=== PATIENT | female | born 1985 | race Caucasian/White ===

== ENCOUNTER 2017-10-28 04:58 | Inpatient (IN) ==
--- OUTSIDE RECORDS SUMMARY | 2017-10-28 05:03 | External Medical Summary | Continuity of Care Document ---
:1985 Author Organization [facility] Address [address] [place], [place] [id number] Phone Care Team Providers Name Role Phone Subha Snell DO Unavailable Unavailable Allergies, Adverse Reactions, Alerts Substance Reaction Severity Status No Known Drug Allergies Unknown Active Medications Medication Instructions Dosage Effective Status Comments Dates (start - stop) levothyroxine 88 take 1 tablet by 88 MCG - Active mcg tablet oral route every day levothyroxine 100 take 1 tablet by - Active mcg tablet oral route every day (with the 88mcg) acetaminophen 300 take 1 tablet by Not Available - Active called to [facility] mg-codeine 30 mg oral route every tablet 6 hours as needed 28 mg take 1 tablet by Not Available - Active iron-800 mcg tablet oral route every day Tylenol Extra take 2 tablet by 1000 MG - Active Strength 500 mg oral route every tablet 6 hours as needed Problems Condition Effective Dates (start - stop) Clinical Status Supervision of other high risk - pregnancies, second trimester Endo, nutritional and metab diseases - comp preg, second tri 21 weeks gestation of - Supervision of other high risk - pregnancies, first trimester 13 weeks gestation of - Supervision of other high risk - pregnancies, first trimester Endo, nutritional and metab diseases - comp preg, first tri Encntr screen for infections w sexl - mode of transmiss Encounter for screening for oth - infec/parastc diseases Encounter for screening of - mother 10 weeks gestation of - Endo, nutritional and metab diseases - comp preg, second tri Encntr for suprvsn of normal first - preg, second trimester 17 weeks gestation of - Endo, nutritional and metab diseases - comp preg, second tri 21 weeks gestation of - Endo, nutritional and metab diseases - comp preg, second tri 14 weeks gestation of - Migraines Active Procedures Procedure Date Ultrasound exam of preg uterus, complete Results Test Name Date and Time Measure Units Reference Range Abnormal Flag Comments Unknown Advance Directives Directive Yes / No Effective Date File Name Unknown Encounters Encounter Practice Location Reason(s) Diagnoses Date Provider Care Team Description For Visit Members Reji Schmidt Mar-0 Tom In Womens 8-201 [place]. 700 Health PA, 8 Medical PO [address] Center [address], Walter Molina, [facility], [place], Schmidt, [id number], [place], [place] [id number] tel: , [place]. tel: [phone] Reji Renteria, nutritional Mar-0 Tom Referring In Womens and metab - [place]. 700 Provider: Health PA, diseases comp 8 Medical Chidi PO Box [facility], second Center Tom R, 1522, tri21 weeks Walter Molina, gestation of 120, Medical [place], [facility] , [place], [facility] 120, [place] [id number] Brayan, tel: , [place]. [place], tel: [phone]. [id number] tel:[phone] Reji Schmidt Supervision of Mar-0 Tom Referring In Womens Ultrasound other high risk [place]. 700 Provider: Health PA, pregnancies, 8 Medical Chidi PO Box second Center Tom R, 1522, [address]oDr [address] [place], nutritional and 120, Medical [place], metab diseases [place]an [place] [id number], comp preg, second [place], [facility] 120, [place] tri21 weeks [id number] Brayan, tel: gestation of , [place]. [place] tel:[phone]. [id number] tel:[phone] Associates [facility] Renteria nutritional Feb-0 Tom Referring In Womens and metab [place]. 700 Provider: Health PA, diseases comp 8 Medical Chidi PO Box preg, second Center Tom R, 1522, triEncntr for Walter Molina, suprvsn of normal 120, Medical [place], first juan, He [place] [address] [id number], second [place], Walter 120, [place] [id number] weeks [id number] Brayan, tel: gestation of , [place]. [place] tel: [phone]. [id number] tel:[phone] Reji Renteria nutritional Apr- Tom Referring In Womens and metab [place]. 700 Provider: Health PA, diseases comp 8 Medical Chidi PO Box preg, second Center Tom R, 1522, tri14 weeks Walter Molina, gestation of 120, Medical [place], [place]ray[place] [id number], [place], Walter 120, [place] [id number] Brayan, tel: , [place]. [place] tel: [phone]. [id number] tel:[phone] Reji Schmidt Supervision of Apr- Tom Referring In Womens Ultrasound other high risk 0-201 [place]. 700 Provider: Health PA, pregnancies, 8 Medical Chidi PO Box first [id number] Center Tom R, 1522, weeks gestation Walter Molina, of 120, Medical Bray[address] [id number], [place], Walter 120, [place] [id number] Brayan, tel: , [place]. [place] tel: [phone]. [id number] tel:[phone] Reji Schmidt Supervision of Dec-2 Tom Referring In Womens other high risk 0-201 [place]. 700 Provider: Health PA, pregnancies, 7 Medical Chidi PO Box first Center Tom R, 1522, trimesterEndo, Walter Molina, nutritional and 120, Medical [place], metab diseases He [place] [id number], comp preg, first [place], Walter 120, [place] triEncntr screen [id number] Brayan, tel: for infections w , [place], [address] sexl mode of tel: [phone]. transmissEncounte [id number] tel: r for screening [phone] for oth infec/parastc diseasesEncounter for screening of [id number] weeks gestation of Reji Schmidt Nov- Tom In Womens 0-[address], [address] [place] [address] 1522, Walter Molina [place], [facility], [place], Brayan, [id number], [place], [place] [id number] tel: , [place]. [id number] tel: [phone] Family History Family Member Diagnosis Age At Onset Paternal Grandmother Breast Cancer Maternal Grandmother Thyroid Disorder No family history of Pulmonary Embolism No family history of Venous Thrombosis Paternal Grandmother Diabetes Paternal Grandfather Colon Cancer Immunizations Vaccine Date Status Comments Influenza, injectable, quadrivalent, completed Source: Other Provider preservative free, 3 yrs or older Tdap completed Source: Other Provider Payers Payer name Insurance type Covered libertarian ID Authorization(s) [facility] [id number] Social History Type Description Quantity Date Captured Unknown Vital Signs Date / Height Weight BMI Pulse Blood Temperature Respiratory Body Head BMI Time: Rate Pressure Rate Surface Circumference percentile Area Unknown Chief Complaint And Reason For Visit Unknown Chief Complaint And Reason For Visit Reason For Referral Reason For Referral Unknown Plan Of Care Date Type Action Status Appointment Leia Delarosa BOOKED Future Order: Radiology Order Complete OB Ultrasound > 14 Weeks Ordered ([id number]) Future Order: Radiology Order Nuchal Translucency ([id number]) Ordered Future Order: Lab Order Pap Smear With HPV Reflex If ASCUS Ordered ([id number]), Collected on: Date Type Problem Goal Intervention Status Start Date Unknown. History Of Present Illness Encounter Date Complaint History Of Present Illness This patient has no known history of present illness Functional Status Encounter Date Functional Assessment Cognitive Assessment Unknown Medications Administered Medication Instructions Dosage Effective Dates (start - stop) Status Comments Drug Treatment Unknown Instructions Date Instruction Additional Information travel use of any medications (including supplements, vitamins, herbs, OTC drugs) domestic violence seat belt use childbirth classes / hospital facilities hospital registration genetic testing new ob handbook Zika virus assessment & precautions HIV and other routine tests risk factors identified by history anticipated course of care nutrition and weight gain counseling, special diet toxoplasmosis precautions (cats / raw meat) sexual activity exercise indications for ultrasound influenza vaccine environmental / work hazards
--- OUTSIDE RECORDS SUMMARY | 2017-10-28 05:03 | External Medical Summary | Continuity of Care Document ---
:1985 Author Organization [facility] Address [address] [place], [place] [id number] Phone Care Team Providers Name Role Phone [...] - mother 10 weeks gestation of - Supervision of other [...] of - Migraines Active Procedures Procedure Date Unknown Results Test Name Date and Time Measure Units Reference Range Abnormal Flag Comments Unknown Advance Directives Directive Yes / No Effective Date File Name Unknown Encounters Encounter Practice Location Reason(s) Diagnoses Date Provider Care Team Description For Visit Members Reji Schmidt Mar-0 Tom In Womens 8 [place]. 700 Health PA, 8 Medical PO Box Center [address], Walter Molina, [facility], [place], Brayan, [id number], [place], [id number] tel: , . tel: [phone] Reji Renteria, nutritional Mar-0 Tom Referring In Womens and metab [place]. 700 Provider: Health PA, diseases comp 8 Medical [facility] Box preg, second Center Tom R, 1522, tri21 weeks Walter Molina, gestation of 120, Medical [place], Brayan He Molina [id number], [place], [place] [address], [place] [id number] Brayan tel: , . [place], tel: [phone]. [id number] tel:[phone] Reji Schmidt Supervision of Mar-0 Tom Referring In Womens Ultrasound other high risk [place]. 700 Provider: Health PA, pregnancies, 8 Medical Chidi PO Box second Center Tom R, 1522, trimesterEndDr [address] [place] nutritional and 120, Medical [place], metab diseases [facility] [id number], comp preg, second [place], [facility] 120, [place] tri21 weeks [id number] Brayan, tel: gestation of , [place]. [place] tel: [phone]. [id number] tel:[phone] Associates [facility] Renteria, nutritional Feb-0 Tom Referring In Womens and metab [place]. 700 Provider: Health PA, diseases comp 8 Medical Chidi PO Box preg, second Center Tom R, 1522, triEncntr for Walter Molina suprvsn of normal 120, Medical [place], first juan, Brayan [place] [id number], second [place], Walter 120, [place] [id number] weeks [id number] Brayan, tel: gestation of , [place]. [place] tel: [phone]. [id number] tel:[phone] Reji Renteria, nutritional Apr- Tom Referring In Womens and metab [place]. 700 Provider: Health PA, diseases comp 8 Medical Chidi PO Box preg, second Center Tom R, 1522, tri14 weeks Walter Molina, gestation of 120, Medical [place], [facility] [id number], [place], Walter 120, [place] [id number] Brayan, tel: , [place]. [place], tel: [phone]. [id number] tel:[phone] Reji Schmidt Supervision of Apr- Tom Referring In Womens Ultrasound other high risk 0-201 [place]. 700 Provider: Health PA, pregnancies, 8 Medical Chidi PO Box first [id number] Center Tom R, 1522, weeks gestation Walter Molina, of 120, Medical Brayan FORD [place] [id number], [place], Walter 120, [place] [id number] Brayan, tel: , [place]. [place], tel: [phone]. [id number] tel:[phone] Reji Schmidt Supervision of Mar-2 Tom Referring In Womens other high risk 0-201 [place]. 700 Provider: Health PA, pregnancies, 7 Medical Chidi PO Box first Center Tom R, 1522, trimesterEndo, Walter Molina, nutritional and 120, Medical [place], metab diseases He [address] [place] [id number], comp preg, first [place], Walter 120, [place] triEncntr screen [id number] Brayan, tel: for infections w , [place]. [place], sexl mode of tel: [phone]. transmissEncounte [id number] tel: r for screening [phone] for oth infec/parastc diseasesEncounter for screening of [id number] weeks gestation of Reji Schmidt Nov-2 Tom In Womens 0-[address], [address] [place] [address] 1522, Walter Molina, 120, [place], [place], [id number], [place], [id number] tel: , [place]. tel: [phone] Family History Family Member Diagnosis Age At [...] Provider Payers Payer name Insurance type Covered republican ID Authorization(s) [facility] [id number] Social History Type Description Quantity Date Captured [...] Leia Delarosa BOOKED Future Order: Radiology Order Nuchal Translucency ([id number]) Ordered Future Order: Lab Order Pap Smear With HPV Reflex If ASCUS Ordered ([id number]), Collected on: Future Order: Radiology Order Complete OB Ultrasound > 14 Weeks Ordered ([id number]) Date Type Problem Goal Intervention Status Start [...]
--- OUTSIDE RECORDS SUMMARY | 2017-10-28 05:03 | External Medical Summary | Continuity of Care Document ---
:1985 Author Organization [facility] Address [address] [place], [place] [id number] Phone Care Team Providers Name Role Phone Subha Snell DO Unavailable Unavailable Allergies, Adverse Reactions, Alerts Substance Reaction Severity Status No Known Drug Allergies Unknown Active Medications Medication Instructions Dosage Effective Status Comments Dates (start - stop) levothyroxine 200 take 1 tablet by 200 MCG - Active mcg tablet oral route every day levothyroxine 88 TAKE 1 TABLET BY - Active mcg tablet ORAL ROUTE EVERY DAY acetaminophen 300 take 1 tablet by Not [...] metab diseases - comp preg, second tri 27 weeks gestation of - Supervision of other high risk - pregnancies, second trimester Endo, nutritional and metab diseases - comp preg, second tri 21 weeks gestation of - Supervision of other high risk - pregnancies, third trimester Endo, nutritional and metab diseases - comp preg, third tri 34 weeks gestation of - Supervision of other high risk - pregnancies, third trimester Maternal care for excess growth, - third trimester, unsp Endo, nutritional and metab diseases - comp preg, third tri 34 weeks gestation of - Endo, nutritional and [...] of normal first - preg, second trimester 24 weeks gestation of - Endo, nutritional and metab diseases - comp preg, second tri 14 weeks gestation of - Endo, nutritional and metab diseases - comp preg, third tri 33 weeks gestation of - Encntr for suprvsn of normal first - preg, third trimester 31 weeks gestation of - Migraines Active Procedures Procedure Date Unknown Results Test Name Date and Time Measure Units Reference Range Abnormal Flag Comments Unknown Advance Directives Directive Yes / No Effective Date File Name Unknown Encounters Encounter Practice Location Reason(s) Diagnoses Date Provider Care Team Description For Visit Members Reji Schmidt Supervision of Tom Referring In Womens other high risk 1-201 [place]. 700 Provider: Health PA, pregnancies, 8 Medical Chidi PO Box [facility] Center Tom Flores, 1522, trimesterMaternal , Walter 700 [place], care for excess 120, Medical [place], growth, [facility] , third trimester, [place], Walter 120, [place] unspEndo, [id number] Brayan, tel: nutritional and , [place]. [place] metab diseases tel:[phone]. comp preg, third [id number] tel:+ tri34 weeks [id number] gestation of Associates Brayan Supervision of Amado-1 Tom Referring In Womens Ultrasound other high risk 1-201 [facility]. 700 Provider: Health PA, pregnancies, 8 Medical Chidi PO Box third Center Tom R, 1522, trimesterEndo, Walter Molina, nutritional and 120, Medical [place], metab diseases [facility] [id number], comp preg, third [place], Walter 120, [place] tri34 weeks [id number] Brayan, tel: gestation of , [place]. [place] tel:[phone]. [id number] tel:[phone] Reji Schmidt May-3 Tom In Womens 1-201 [facility]. 700 Health PA, 8 Medical PO Box Center [address], Walter Molina, 120, [place], [id number], [place], [place] [id number] tel: , [place]. tel: [phone] Reji Schmidt Endo, nutritional May-3 Tom Referring In Womens and metab 0-201 [facility]. 700 Provider: Health PA, diseases comp 8 Medical Chidi PO Box preg, third tri33 Center Tom R, 1522, weeks gestation Walter Molina, of 120, Medical [facility] [id number], [place], Walter 120, [place] [id number] Brayan, tel: , [place]. [place] tel: [phone]. [id number] tel:[phone] Reji Schmidt Encntr for May-1 Tom Referring In Womens suprvsn of normal 7-201 [facility]. 700 Provider: Health PA, first preg, third 8 Medical Chidi PO Box [id number] weeks Center Tom R, 1522, gestation of Walter Molina, 120, Medical [facility] [id number], [place], Walter 120, [place] [id number] [place], tel: , [place]. [place], tel: [phone]. [id number] tel:[phone] Reji Schmidt May-1 Tom In Womens 5-201 [facility]. 700 Health PA, 8 Medical PO Box Center [address], Walter Molina, 120, [place], [place], [id number], [place], [place] [id number] tel: , [place]. tel: [phone] Reji Schmidt Supervision of Apr-2 Tom Referring In Womens other high risk 4-201 [facility]. 700 Provider: Health PA, pregnancies, 8 Medical Chidi PO Box second Center Tom R, 1522, trimesterEndo, Dr Walter Darshan Fan, nutritional and 120, Medical [place], metab diseases Brayan, [place] [id number], comp preg, second [place], Walter 120, [place] tri27 weeks [id number] Brayan, tel: gestation of , [place]. [place] tel: [phone]. [id number] tel:[phone] Reji Renteria, nutritional Mar-2 Tom Referring In Womens and metab 9-201 [facility]. 700 Provider: Health PA, diseases comp 8 Medical [facility] PO Box preg, second Center Tom R, 1522, triEncntr for Dr [facility] Darshan Fan, suprvsn of normal 120, Medical [place], first [facility], [facility] [id number], second [place], [facility] 120, [place] [id number] weeks [id number] Brayan, tel: gestation of , [place]. [place] tel: [phone]. [id number] tel:[phone] Rjei Schmidt Endo, nutritional Mar-0 Tom Referring In Womens and metab 7-201 [facility]. 700 Provider: Health PA, diseases comp 8 Medical [facility] PO Box preg, second Center Tom R, 1522, tri21 weeks Dr Walter Darshan Fan, gestation of 120, Medical [place], Brayan, [place] [id number], [place], Walter 120, [place] [id number] Brayan, tel: , [place]. [place] tel: [phone]. [id number] tel:[phone] Reji Schmidt Supervision of Mar-0 Tom Referring In Womens Ultrasound other high risk -201 [facility]. 700 Provider: Health PA, pregnancies, 8 Medical Chidi PO Box second Center Tom R, 1522, trimesterEndo, Walter Molina, nutritional and 120, Medical [place], metab diseases Brayan Mar[place] [id number], comp preg, second [place], Walter 120, [place] tri21 weeks [id number] Brayan, tel:+ gestation of , [place]. [place] tel: [phone]. [id number] tel:[phone] Reji Renteria, nutritional Feb-0 Tom Referring In Womens and metab [facility]. 700 Provider: Health PA, diseases comp 8 Medical Chidi PO Box preg, second Center Tom R, 1522, triEncntr for Walter Molina, suprvsn of normal 120, Medical [place], first preg, [facility] [id number], second [place], Walter 120, [place] weeks [id number] Brayan, tel: gestation of , [place]. [place] tel: [phone]. [id number] tel:[phone] Reji Renteria, nutritional Apr-1 Tom Referring In Womens and metab [facility]. 700 Provider: Health PA, diseases comp 8 Medical Chidi PO Box preg, second Center Tom R, 1522, tri14 weeks Walter Molina, gestation of 120, Medical [place], [facility] [id number], [place], Walter 120, [place] [id number] Brayan, tel: , [place]. [place] tel: [phone]. [id number] tel:[phone] Reji Schmidt Supervision of Apr-1 Tom Referring In Womens Ultrasound other high risk 0-201 [facility]. 700 Provider: Health PA, pregnancies, 8 Medical Chidi PO Box first [id number] Center Tom R, 1522, weeks gestation Walter Molina, of 120, Medical Brayan FORD [place] [id number], [place], Walter 120, [place] [id number] Brayan, tel: , [place]. [place] tel: [phone]. [id number] tel:[phone] Associates Brayan Supervision of Mar-2 Tom Referring In Womens other high risk 0-201 [facility]. 700 Provider: Health PA, pregnancies, 7 [facility] Box [facility] Tom R, 1522, trimesterEndo, , [facility] 700 [place], nutritional and 120, Medical [place], metab diseases [facility] [id number], comp preg, first [place], [facility] 120, [place] triEncntr screen [id number] Brayan, tel:316 for infections w , [place]. [place], sexl mode of tel: [phone]. transmissEncounte [id number] tel:316 r for screening [phone] for oth infec/parastc diseasesEncounter for screening of [id number] weeks gestation of Reji Schmidt Feb- Tom In Womens 0-201 [facility]. 700 Health PA, 7 [facility] PO Box Center 1522, , Walter [place], 120, [place], [id number], [place], [place] [id number] tel: , . tel: [phone] Family History Family Member Diagnosis Age At [...] Provider Payers Payer name Insurance type Covered constitution party ID Authorization(s) [facility] [id number] Social History Type Description Quantity Date Captured Unknown Vital Signs Date / Height Weight BMI Pulse Blood Temperature Respiratory Body Head BMI Time: Rate Pressure Rate Surface Circumference percentile Area Unknown Chief Complaint And Reason For Visit Unknown Chief Complaint And Reason For Visit Reason For Referral Reason For Referral Unknown Plan Of Care Date Type Action Status Appointment Leia Delarosa BOOKED Appointment Leia Delarosa BOOKED Appointment Leia Delarosa BOOKED Appointment Leia Delarosa BOOKED Future Order: Radiology Order Nuchal Translucency ([id number]) Ordered Future Order: Lab Order Pap Smear With HPV Reflex If ASCUS Ordered ([id number]), Collected on: Future Order: Radiology Order Complete OB Ultrasound > 14 Weeks Ordered ([id number]) Future Order: Radiology Order Ultrasound OB Follow-up ([id number]) Ordered Date Type Problem Goal Intervention Status Start [...]
--- OUTSIDE RECORDS SUMMARY | 2017-10-28 05:03 | External Medical Summary | Continuity of Care Document ---
:1985 Author Organization [facility] Address [address] [place], [place] [id number] Phone Care Team Providers Name Role Phone Subha Snell DO Unavailable Unavailable Allergies, Adverse Reactions, Alerts Substance Reaction Severity Status No Known Drug Allergies Unknown Active Medications Medication Instructions Dosage Effective Status Comments Dates (start - stop) levothyroxine 100 TAKE 1 TABLET BY - Active mcg tablet ORAL ROUTE EVERY DAY (WITH THE 88MCG) levothyroxine 88 TAKE 1 TABLET BY - Active mcg tablet ORAL ROUTE EVERY DAY levothyroxine 200 take 1 tablet by 200 MCG - Active mcg tablet oral route every day acetaminophen 300 take 1 tablet by Not [...] Effective Dates (start - stop) Clinical Status Encntr for suprvsn of normal first - preg, third trimester Encounter For Screening For - Streptococcus B 36 weeks gestation of - Supervision of other [...] third tri 33 weeks gestation of - Endo, nutritional and metab diseases - comp preg, third tri Encntr for suprvsn of normal first - preg, third trimester 37 weeks gestation of - Encounter for screening for - respiratory tuberculosis Encntr for suprvsn of normal first - preg, third trimester 38 weeks gestation of - Encntr for suprvsn of normal first - preg, third trimester 31 weeks gestation of - Migraines Active Procedures Procedure Date Immuniz admnin, 1 vac, sngl/combo 19 Yrs + TDAP VACCINE >7 IM OB Visit No Charge Cult, pathgnc orgnsm, screen Results Test Name Date and Time Measure Units Reference Range Abnormal Flag Comments Panel Description: Strep Gp B Culture Strep Gp B Negative Negative Centers for Disease Control Culture 13:45:00 and Prevention (CDC) and [place] Congressof Obstetricians and Gynecologists (ACOG) guidelines for prevention ofperinatal group B streptococcal (GBS) disease specify co-collection ofa vaginal and rectal swab specimen to maximize sensitivity of GBSdetection. Per the CDC and ACOG, swabbing both the lower vagina andrectum substantially increases the yield of detection compared withsampling the vagina alone. .Penicillin G, ampicillin, or cefazolin are indicated for intrapartumprophylaxis of GBS colonization. Reflex susceptibilitytesting should be performed prior to use of clindamycin only on GBSisolates from penicillin-allergic women who are considered a high riskfor anaphylaxis. Treatment with vancomycin without additional testingis warranted if resistance to clindamycin is noted. Advance Directives Directive Yes / No Effective Date File Name Unknown Encounters Encounter Practice Location Reason(s) Diagnoses Date Provider Care Team Description For Visit Members Reji Schmidt Encntr for Oct-0 Tom Referring In Womens suprvsn of normal 5-201 [place]. 700 Provider: Lashaun HUA, first preg, third 8 Medical Chidi DOUGLAS Box [id number] weeks [place] Tom R, 1522, gestation of Walter [place]olinata, 120, Medical [place] [facility] [id number], [place], [facility] 120, [place] [id number] Brayan, tel: , . [place], [address] tel: [phone]. [id number] tel:[phone] Reji Schmidt Encounter for Oct-0 Saavedra Referring In Womens screening for 3-201 Karmen. Provider: Lashaun HUA, respiratory 8 700 Chidi PO Box tuberculosis Medical Tom R, 1522, Center [address], [facility], 120, Center [id number], Schmidt, [facility] 120, [place] Brayan FORD, tel:[phone] [place], , [place]. [id number]. tel: tel:+ [phone] [facility] Endo, nutritional Amado-2 Tom Referring In Womens and metab 8-201 [place]. 700 Provider: Health PA, diseases comp 8 Medical [place] PO Box preg, third Center Tom R, 1522, triEncntr for Dr [place] [address] [place], suprvsn of normal 120, Medical [place], first preg, [facility] [id number], [id number] weeks [place], Walter 120, [place] gestation of [id number] Brayan, tel: , [place]. [place], tel: [phone]. [id number] tel:[phone] Reji Schmidt Amado-2 Tom In Womens 5-201 [place]. 700 Health PA, [address] [place] [address] Center 1522, Dr [facility] [place], 120, [place], [place]ray[place] [id number], [place], [place] tel: , [place]. tel: [phone] Reji Schmidt Encntr for Amado-2 Tom Referring In Womens suprvsn of normal 1-201 [place]. 700 Provider: Health PA, first preg, third 8 [facility] Box trimesterEncounte Center Tom R, 1522, r For Dr [place] [address] [place], Screening For 120, Medical [place], Streptococcus B36 [place] [id number], weeks gestation [place], Walter 120, [place] of [id number] [place], tel: , [place]. [place], tel:[phone]. [id number] tel:[phone] Reji Schmidt Supervision of Amado-1 Tom Referring In Womens other high risk 1-201 [place]. 700 Provider: Health PA, pregnancies, 8 [facility] third Center Tom R, 1522, trimesterMaternal , [place] [address] [place], care for excess 120, Medical [place], growth, [facility] [id number], third trimester, [place], Walter 120, [place] unspEndo, [id number] Brayan, tel: nutritional and , [place]. [place] metab diseases tel:[phone]. comp preg, third [id number] tel:+ tri34 weeks [phone] gestation of Associates B[facility] Supervision of Amado-1 Tom Referring In Womens Ultrasound other high risk 1-201 [place]. 700 Provider: Health PA, pregnancies, 8 Medical Chidi PO Box third Center Tom R, 1522, trimesterEndo, Walter Molina, nutritional and 120, Medical [place], metab diseases [place] [id number], comp preg, third [place], Walter 120, [place] tri34 weeks [id number] Brayan, tel: gestation of , [place]. [place] tel:[phone]. [id number] tel:[phone] Reji Schmidt May-3 Tom In Womens 1-201 [place]. 700 Health PA, 8 Medical PO Box Center 1522, Walter Molina, 120, [place] [id number], [place], [place] [id number] tel:+ , [place]. tel: [phone] Reji Schmidt Endo, nutritional May-3 Tom Referring In Womens and metab 0-201 [place]. 700 Provider: Health PA, diseases comp 8 Medical Chidi PO Box preg, third tri33 Center Tom R, 1522, weeks gestation Walter Molina, of 120, Medical [facility] [id number], [place], [facility] 120, [place] [id number] B[place]an, tel: , [place]. [place] tel: [phone]. [id number] tel:[phone] Reji Schmidt Encntr for May-1 Tom Referring In Womens suprvsn of normal 7-201 [place]. 700 Provider: Health PA, first preg, third 8 Medical Chidi PO Box [id number] weeks Center Tom R, 1522, gestation of Walter Molina, 120, Medical [facility] [id number], [place], Walter 120, [place] [id number] Brayan, tel: , [place]. [place] tel: [phone]. [id number] tel:[phone] Reji Schmidt Supervision of Apr-2 Tom Referring In Womens other high risk [place]. 700 Provider: Health PA, pregnancies, 8 Medical Chidi PO Box second Center Tom R, 1522, trimesterEndDr landen, Walter 700 [place], nutritional and 120, Medical [place], metab diseases Bray[place] [id number], comp preg, second [place], Walter 120, [place] tri27 weeks [id number] Brayan, tel:+ gestation of , [place]. [place] tel: [phone]. [id number] tel:[phone] Reji Schmidt Endo, nutritional Mar-2 Tom Referring In Womens and metab [place]. 700 Provider: Health PA, diseases comp 8 Medical Chidi PO Box preg, second Center Tom R, 1522, triEncntr for , Walter 700 [place], suprvsn of normal 120, Medical [place], first preg, [place]ray[place] [id number], second [place], Walter 120, [place] [id number] weeks [id number] Brayan, tel:+ gestation of , [place]. [place] tel: [phone]. [id number] tel:[phone] Reji Renteria, nutritional Mar-0 Tom Referring In Womens and metab [place]. 700 Provider: Health PA, diseases comp 8 Medical Chidi PO Box preg, second Center Tom R, 1522, tri21 weeks , Walter Darshan Fan, gestation of 120, Medical [place], [place]ray[place] [id number], [place], Walter 120, [place] [id number] Bray[place], tel: , [place]. [place] tel: [phone]. [id number] tel:[phone] Reji Schmidt Supervision of Mar-0 Tom Referring In Womens Ultrasound other high risk - [place]. 700 Provider: Health PA, pregnancies, 8 Medical Chidi PO Box second Center Tom R, 1522, trimesterDr Dexter, Walter Darshan Fan, nutritional and 120, Medical [place], metab diseases He [place] [id number], comp preg, second [place], Walter 120, [place] tri21 weeks [id number] Brayan, tel: gestation of , [place]. [place] tel: [phone]. [id number] tel:[phone] Reji Renteria, nutritional Feb-0 Tom Referring In Womens and metab -201 [place]. 700 Provider: Health PA, diseases comp 8 Medical Chidi PO Box preg, second Center Tom R, 1522, triEncntr for [place] Molina suprvsn of normal 120, Medical [place], first [facility], [facility] [id number], second [place], Walter 120, [place] [id number] weeks [id number] Brayan, tel: gestation of , [place]. [place] tel: [phone]. [id number] tel:[phone] Reji Renteria, nutritional Bala- Tom Referring In Womens and metab 201 [place]. 700 Provider: Health PA, diseases comp 8 Medical Chidi PO Box preg, second Center Tom R, 1522, tri14 weeks [place] Molina, gestation of 120, Medical [place], [facility] [id number], [place], Walter 120, [place] [id number] Brayan, tel: , [place]. [place] tel: [phone]. [id number] tel:[phone] Reji Schmidt Supervision of Apr- Tom Referring In Womens Ultrasound other high risk 0-201 [place]. 700 Provider: Health PA, pregnancies, 8 Medical Chidi PO Box first Center Tom R, 1522, weeks gestation Walter Molina, of 120, Medical [place], [facility] [id number], [place], Walter 120, [place] [id number] Brayan, tel: , [place]. [place] tel: [phone]. [id number] tel:[phone] Reji Schmidt Supervision of Mar-2 Tom Referring In Womens other high risk 0-201 [place]. 700 Provider: Health PA, pregnancies, 7 Medical Chidi PO Box first Center Tom R, 1522, trimesterEndo, Walter Molina, nutritional and 120, Medical [place], metab diseases Brayan He Molina [id number], comp preg, first LOGAN, Walter 120, [place] triEncntr screen [id number] Brayan, tel: for infections w , [place]. [place], sexl mode of tel: [phone]. transmissEncounte [id number] tel: r for screening [phone] for oth infec/parastc diseasesEncounter for screening of txuxcy40 weeks gestation of Associates [facility] Tom In Womens 0-[address], 7 Medical Box Center 1522, , Walter [place], 120, [place], Brayan, [id number], [place], [place] [id number] tel: , [place]. tel: [phone] Family History Family Member Diagnosis Age At Onset Paternal Grandmother Breast Cancer Maternal Grandmother Thyroid Disorder No family history of Pulmonary Embolism No family history of Venous Thrombosis Paternal Grandmother Diabetes Paternal Grandfather Colon Cancer Immunizations Vaccine Date Status Comments Tdap completed Source: New Immunization Record Influenza, injectable, completed Source: Other Provider quadrivalent, preservative free, 3 yrs or older Tdap completed Source: Other Provider Payers Payer name Insurance type Covered constitution party ID Authorization(s) [facility] [id number] [facility] [id number] Social History Type Description Quantity Date Captured Alcohol Use Details No Caffeine Use Details Unknown Tobacco Use Status Unknown Smoking Status Never smoker Vital Signs Date / Height Weight BMI Pulse Blood Temperature Respiratory Body Head BMI Time: Rate Pressure Rate Surface Circumference percentile Area 244.90 35.3 / lbs 4 mm[Hg] 1:28 kg/m PM eter (2) Chief Complaint And Reason For Visit Unknown Chief Complaint And Reason For Visit Reason For Referral Reason For Referral Unknown Plan Of Care Date Type Action Status Appointment Leia Delarosa BOOKED Future Order: Radiology Order Nuchal Translucency ([id number]) Ordered Future Order: Lab Order Pap Smear With HPV Reflex If ASCUS Ordered ([id number]), Collected on: Future Order: Radiology Order Complete OB Ultrasound > 14 Weeks Ordered ([id number]) Future Order: Radiology Order Ultrasound OB Follow-up ([id number]) Ordered Date Type Problem Goal Intervention Status [...]
--- OUTSIDE RECORDS SUMMARY | 2017-10-28 05:04 | External Medical Summary | Continuity of Care Document ---
:1985 Author Organization [facility] Address [address] [place], [place] [id number] Phone Care Team Providers Name Role Phone Subha Snell DO Unavailable Unavailable Allergies, Adverse Reactions, Alerts Substance Reaction Severity Status No Known Drug Allergies Unknown Active Medications Medication Instructions Dosage Effective Status Comments Dates (start - stop) levothyroxine 175 take 1 tablet by 175 MCG - Active mcg tablet oral route [...] - mother 10 weeks gestation of - Migraines Active Procedures Procedure Date Unknown Results Test Name Date and Time Measure Units Reference Range Abnormal Flag Comments Unknown Advance Directives Directive Yes / No Effective Date File Name Unknown Encounters Encounter Practice Location Reason(s) Diagnoses Date Provider Care Team Description For Visit Members Reji Schmidt Supervision of Tom Referring In Womens Ultrasound other high risk 0-201 [place]. 700 Provider: Health PA, pregnancies, 8 Medical [facility] Box first [id number] Center Tom R, 1522, weeks gestation Dr, Walter Fan, of 120, Medical [place], Schmidt, [place] [id number], [place], [facility] 120, [place] [id number] [place], tel: , [place]. [place], tel:[phone]. [id number] tel:[phone] Reji Schmidt Dec-2 Tom In Womens 2-201 [place]. 700 Health PA, 7 Medical PO Box Center 1522, Walter Molina, 120, [place], [place], [id number], [place] [id number] tel: , [place]. tel: [phone] Reji Schmidt Dec-2 Tom In Womens 1-201 [place]. 700 Health PA, 7 Medical PO Box Center 1522, Walter Molina, 120, [place], Brayan, [id number], [place] [id number] tel: , [place]. tel: [phone] Reji Schmidt Supervision of Dec-2 Tom Referring In Womens other high risk 0-201 [place]. 700 Provider: Health PA, pregnancies, 7 [facility] Box first Center Tom R, 1522, trimesterEndo, Walter Molina, nutritional and 120, Medical [place], metab diseases [facility] [id number], comp preg, first [place], [facility] 120, [place] triEncntr screen [id number] Brayan, tel: for infections w , [place]. [place], sexl mode of tel: [phone]. transmissEncounte [id number] tel: r for screening [phone] for oth infec/parastc diseasesEncounter for screening of lnpeth66 weeks gestation of Reji Schmidt Nov-2 Tom In Womens 0-201 [place]. 700 Health PA, 7 Medical PO Box Center 1522, Walter [place]ina, 120, [place], Brayan, [id number], [place], [place] [id number] tel: , [place]. tel:[phone] Family History Family Member Diagnosis Age At [...] Provider Payers Payer name Insurance type Covered democrat ID Authorization(s) [facility] [place] [id number] Social History Type Description Quantity Date Captured [...] BOOKED Future Order: Radiology Order Nuchal Translucency ([id number]) Ordered Future Order: Lab Order Pap Smear [...]
--- OUTSIDE RECORDS SUMMARY | 2017-10-28 05:04 | External Medical Summary | Continuity of Care Document ---
:1985 Author Organization [facility] Address [address] [place], [place] [id number] Phone Care Team Providers Name Role Phone [...] Effective Dates (start - stop) Clinical Status Endo, nutritional and metab diseases - comp preg, third tri 33 weeks gestation of - Supervision of other [...] second tri 14 weeks gestation of - Encntr for suprvsn of normal first - preg, third trimester 31 weeks gestation of - Migraines Active Procedures Procedure Date OB Visit No Charge Assay thyroid stimulating hormone Venpnctr fngr/heel/ear stick routne Results Test Name Date and Time Measure Units Reference Range Abnormal Flag Comments Panel Description: Thyrotropin [Units/volume] in Serum or Plasma by Detection limit <=0.05 mIU/L TSH 14:04:00 3.740 uIU/mL 0.450-4.500 Reference Interval : First Trimester 0.100 - 2.500 Second Trimester 0.200 - 3.000 Third Trimester 0.300 - 3.000 . Non- Adult 0.450 - 4.500 Advance Directives Directive Yes / No Effective Date File Name Unknown Encounters Encounter Practice Location Reason(s) Diagnoses Date Provider Care Team Description For Visit Members Reji Schmidt Supervision of Amado-1 Tom Referring In Womens other high risk 1-201 [place]. 700 Provider: Health PA, pregnancies, 8 Medical [facility] Center Tom R, 1522, trimesterMaternal , [place] [address] [place], care for excess 120, Medical [place], growth, [facility] [id number], third trimester, [place], Walter 120, [place] unspEndo, [id number] Brayan, tel:+ nutritional and , [place]. [place] metab diseases tel: [phone]. comp preg, third [id number] tel:+316 tri34 weeks [id number] gestation of Associates Brayan Supervision of Amado-1 Tom Referring In Womens Ultrasound other high risk 1-201 [place]. 700 Provider: Health PA, pregnancies, 8 Medical [facility] third Center Tom R, 1522, trimesterEndoDr, [place] [address] [place], nutritional and 120, Medical [place], metab diseases Brayan [place] [id number], comp preg, third [place], Walter 120, [place] tri34 weeks [id number] Brayan, tel: gestation of , [place]. [place] tel: [phone]. [id number] tel:[phone] Reji Schmidt August-3 Tom In Womens 1-201 [place]. 700 Health PA, 8 [facility] Box Center 1522, Walter [place]ina, 120, [place], Brayan [id number], [place], [place] [id number] tel: , [place]. tel: [phone] Reji Schmidt Endo, nutritional May-3 Tom Referring In Womens and metab 0-201 [place]. 700 Provider: Health PA, diseases comp 8 Medical [facility] Box preg, third tri33 Center Tom R, 1522, weeks gestation Dr [facility] Darshan Fan, of 120, Medical [place] [address] [id number], [place], Walter 120, [place] [id number] Brayan, tel: , [place]. [place], tel: [phone]. [id number] tel:[phone] Reji Schmidt Encntr for May-1 Tom Referring In Womens suprvsn of normal 7-201 [place]. 700 Provider: Health PA, first preg, third 8 Medical [place] PO Box [id number] weeks Center Tom R, 1522, gestation of Walter [place]ina, 120, Medical [place], Brayan, [place] [id number], [place], Walter 120, [place] [id number] Brayan, tel: , [place]. [place], tel:[phone]. [id number] tel:[phone] Reji Schmidt August-1 Tom In Womens 5-201 [place]. 700 Health PA, 8 Medical PO Box Center 1522, Walter [place]ina, 120, [place], [place]rayan, [id number], [place], [place] [id number] tel: , [place]. tel: [phone] Reji Schmidt Supervision of Apr-2 Tom Referring In Womens other high risk 4-201 [place]. 700 Provider: Health PA, pregnancies, 8 Medical [facility] Box second Center Tom R, 1522, trimesterEndo, Walter Molina nutritional and 120, Medical [place], metab diseases [facility] [id number], comp preg, second [place], [facility] 120, [place] tri27 weeks [id number] Brayan, tel: gestation of , [place]. [place] tel:[phone]. [id number] tel:[phone] Reji Schmidt Endo, nutritional Mar-2 Tom Referring In Womens and metab 9-201 [place]. 700 Provider: Health PA, diseases comp 8 Medical [facility] Box preg, second Center Tom R, 1522, triEncntr for Walter Molina, [facility] normal 120, Medical [place], first preg, [facility] [id number], second [place], [facility] 120, [place] [id number] weeks [id number] Brayan, tel: gestation of , [place]. [place] tel: [phone]. [id number] tel:[phone] Reji Renteria, nutritional Mar-0 Tom Referring In Womens and metab [place]. 700 Provider: Health PA, diseases comp 8 Medical [place] PO Box preg, second Center Tom R, 1522, tri21 weeks [place]ina, gestation of 120, Medical [place], He Schmidt [place] [id number], [place], Walter 120, [place] [id number] Brayan, tel: , [place]. [place] tel: [phone]. [id number] tel:[phone] Reji Schmidt Supervision of Mar-0 Tom Referring In Womens Ultrasound other high risk [place]. 700 Provider: Health PA, pregnancies, 8 Medical [place] PO Box second Center Tom R, 1522, trimesterEndo, Walter Molina, nutritional and 120, Medical [place], metab diseases He [place] [id number], comp preg, second [place], Walter 120, [place] tri21 weeks [id number] Brayan, tel: gestation of , [place]. [place] tel: [phone]. [id number] tel:[phone] Reji Renteria, nutritional Feb-0 Tom Referring In Womens and metab [place]. 700 Provider: Health PA, diseases comp 8 Medical [place]idi PO Box preg, second Center Tom R, 1522, triEncntr for [place] Molina, suprvsn of normal 120, Medical [place], first preg, He Schmidt Dr [id number], second [place], Walter 120, [place] [id number] weeks [id number] Brayan, tel: gestation of , [place]. [place] tel: [phone]. [id number] tel:[phone] Reji Renteria, nutritional Bala-1 Tom Referring In Womens and metab [place]. 700 Provider: Health PA, diseases comp 8 Medical Chidi PO Box preg, second Center Tom R, 1522, tri14 weeks Walter Molina, gestation of 120, Medical [place], Brayan [place] [id number], [place], Walter 120, [place] [id number] Brayan, tel: , [place]. [place] tel:[phone]. [id number] tel:[phone] Reji Schmidt Supervision of Tom Referring In Womens Ultrasound other high risk 0-201 [place]. 700 Provider: Health PA, pregnancies, 8 Medical [place] PO Box first [id number] Center Tom R, 1522, weeks gestation Walter Molinata, of 120, Medical [place], [facility] [id number], [place], [facility] 120, [place] [id number] Brayan, tel: , . [place], tel: [phone]. [id number] tel:[phone] Reji Schmidt Supervision of Tom Referring In Womens other high risk 0-201 [place]. 700 Provider: Health PA, pregnancies, 7 Medical [facility] Box first Center Tom R, 1522, trimesterEndo, , Walter Fan, nutritional and 120, Medical [place], metab diseases [facility] [id number], comp preg, first [place], [facility] 120, [place] triEncntr screen [id number] Brayan, tel: for infections w , [place]. [place], sexl mode of tel: [phone]. transmissEncounte [id number] tel: r for screening [phone] for oth infec/parastc diseasesEncounter for screening of nexztl71 weeks gestation of Reji Schmidt Tom In Womens 0-201 [place]. 700 Health PA, 7 Medical PO Box Center 1522, Walter Molina, [facility], DEBrayan, [id number], [place], [id number] tel: , . tel: [phone] Family History Family Member Diagnosis Age At [...] name Insurance type Covered republican ID Authorization(s) JONAH ALONSO [id number] Social History Type Description Quantity Date Captured Alcohol Use Details No Caffeine Use Details Unknown Tobacco Use Status Unknown Smoking Status Never smoker Vital Signs Date / Height Weight BMI Pulse Blood Temperature Respiratory Body Head BMI Time: Rate Pressure Rate Surface Circumference percentile Area 242.20 34.9 107/75 -2018 lbs 5 mm[Hg] 1:48 kg/m PM eter (2) Chief Complaint And Reason For Visit Unknown Chief Complaint And Reason For Visit Reason For Referral Reason For Referral Unknown Plan Of Care Date Type Action Status Appointment Leia Delarosa BOOKED Appointment Leia Delarosa BOOKED Appointment Leia Delarosa BOOKED Appointment Leia Delarosa BOOKED Future Order: Radiology Order Nuchal Translucency ([id number]) Ordered Future Order: Lab Order Pap Smear With HPV Reflex If ASCUS Ordered ([id number]), Collected on: Future Order: Radiology Order Complete OB Ultrasound > 14 Weeks Ordered ([id number]) Future Order: Radiology Order Ultrasound OB Follow-up ([id number]) Ordered Date Type Problem Goal Intervention Status [...]
--- OUTSIDE RECORDS SUMMARY | 2017-10-28 05:04 | External Medical Summary | Continuity of Care Document ---
:1985 Author Organization [facility] Address [address] [place], [place] [id number] Phone Care Team Providers Name Role Phone Subha Snell DO Unavailable Unavailable Allergies, Adverse Reactions, Alerts Substance Reaction Severity Status Substance Type Unknown Medications Medication Instructions Dosage Effective Status Comments Dates (start - stop) acetaminophen 300 take 1 tablet by Not Available - Active called to [facility] mg-codeine 30 mg oral route every tablet 6 hours as needed Tirosint 125 mcg take 1 capsule by 125 MCG - Active capsule oral route every day 28 mg take 1 tablet by Not Available - Active iron-800 mcg tablet oral route every day Tylenol Extra take 2 tablet by 1000 MG - Active Strength 500 mg oral route every tablet 6 hours as needed Problems Condition Effective Dates (start - stop) Clinical Status Migraines Active Procedures Procedure Date Unknown Results Test Name Date and Time Measure Units Reference Range Abnormal Flag Comments Unknown Advance Directives Directive Yes / No Effective Date File Name Unknown Encounters Encounter Practice Location Reason(s) Diagnoses Date Provider Care Team Description For Visit Members [facility] [address] [place], [address], [place] Mita Molina [place], Walter 120, [id number], [place] LOGAN Schmidt, tel:[phone], 6790 [place]. tel:[phone] Family History Family Member Diagnosis Age At Onset Paternal Grandmother Breast Cancer Maternal Grandmother Thyroid Disorder Paternal Grandmother Diabetes Paternal Grandfather Colon Cancer Immunizations Vaccine Date Status Comments Influenza, injectable, quadrivalent, completed Source: Other Provider preservative free, 3 yrs or older Tdap completed Source: Other Provider Payers Payer name Insurance type Covered alliance party ID Authorization(s) Unknown Social History Type Description Quantity Date Captured Alcohol Use Details No Caffeine Use Details soda 2 cups per day Tobacco Use Status Never smoked tobacco Smoking Status Never smoker Non-Smoking Tobacco Use : No Details Available : No Details Available Details Vital Signs Date / Height Weight BMI Pulse Blood Temperature Respiratory Body Head BMI Time: Rate Pressure Rate Surface Circumference percentile Area Unknown Chief Complaint And Reason For Visit Unknown Chief Complaint And Reason For Visit Reason For Referral Reason For Referral Unknown Plan Of Care Date Type Action Status Appointment Leia Delarosa BOOKED Date Type Problem Goal Intervention Status Start Date Unknown. History Of Present Illness Encounter Date Complaint History Of Present Illness This patient has no known history of present illness Functional Status Encounter Date Functional Assessment Cognitive Assessment Unknown Medications Administered Medication Instructions Dosage Effective Dates (start - stop) Status Comments Drug Treatment Unknown Instructions Date Instruction Additional Information Unknown
--- OUTSIDE RECORDS SUMMARY | 2017-10-28 05:04 | External Medical Summary | Continuity of Care Document ---
:1985 Author Organization [facility] Address [address] [place], [place] [id number] Phone Care Team Providers Name Role Phone [...] third trimester 37 weeks gestation of - Encntr for suprvsn of normal first - preg, third trimester Encounter For Screening For - Streptococcus B 36 weeks gestation of - Encntr for suprvsn of normal first - preg, third trimester 31 weeks gestation of - Migraines Active Procedures Procedure Date Ultrasnd preg uterus, flwup/repeat Results Test Name Date and Time Measure Units Reference Range Abnormal Flag Comments Unknown Advance Directives Directive Yes / No Effective Date File Name Unknown Encounters Encounter Practice Location Reason(s) Diagnoses Date Provider Care Team Description For Visit Members [facility] Renteria, nutritional Amado-2 Tom Referring In Womens and metab 8-201 [place]. 700 Provider: Health [place], diseases comp 8 Medical [place] PO [address] preg, third [place] Tom R, 1522, triEncntr for Walter Molina, suprvsn of normal 120, Medical [place], first preg, third He [address] [id number], [id number] weeks [place], Walter 120, [place] gestation of [id number] Brayan, tel: , [place]. [place], tel:[phone]. [id number] tel:[phone] Reji Schmidt Amado-2 Tom In Womens 5-201 [place]. 700 Health [place], 8 [facility] Box [place] [address], Walter Molina, 120, [place], [place]ray[place] [id number], [place], [place] [id number] tel: , [place]. tel: [phone] Reji Schmidt Encntr for Amado-2 Tom Referring In Womens suprvsn of normal -201 [place]. 700 Provider: Health JAVID, first preg, third 8 Medical [facility] Box trimesterEncounte [place] Tom R, 1522, r For Walter Molina, Screening For 120, Medical [place], Streptococcus B[address] [id number], weeks gestation [place], Walter 120, [place] of [id number] Brayan, tel: , [place]. [place], tel: [phone]. [id number] tel:[phone] Reji Schmidt Supervision of Amado-1 Tom Referring In Womens other high risk 1-201 [place]. 700 Provider: Health [place], pregnancies, 8 Medical [place] [address] Box third [place] Tom R, 1522, trimesterMaternal Walter Molina, care for excess 120, Medical [place], growth, He [address] [place] [id number], third trimester, [place], Walter 120, [place] unspEndo, [id number] Brayan, tel: nutritional and , [place]. [place], metab diseases tel:[phone]. comp preg, third [id number] tel: tri34 weeks [id number] gestation of [facility] Supervision of Amado-1 Tom Referring In Womens Ultrasound other high risk 1-201 [place]. 700 Provider: Health [place], pregnancies, 8 Medical [place] [address] Box third Center Tom R, 1522, trimesterEndo, Walter Molina, nutritional and 120, Medical [place], metab diseases [facility] [id number], comp preg, third [place], Walter 120, [place] tri34 weeks [id number] Brayan, tel: gestation of , [place]. [place], tel:[phone]. [id number] tel:[phone] Reji Schmidt May-3 Tom In Womens 1-201 [place]. 700 Health [place], 8 Medical [address], Walter Molina, 120, [place], Brayan, [id number], [place], [place] [id number] tel: , [place]. tel: [phone] Reji Schmidt Endo, nutritional May-3 Tom Referring In Womens and metab 0-201 [place]. 700 Provider: Health [place], diseases comp 8 Medical [place] PO Box preg, third tri33 Center Tom R, 1522, weeks gestation Walter Molina, of 120, Medical [facility] [id number], [place], [facility] 120, [place] [id number] Brayan, tel: , [place]. [place], tel:[phone]. [id number] tel:[phone] Reji Schmidt Encntr for May-1 Tom Referring In Womens suprvsn of normal 7-201 [place]. 700 Provider: Health PA, first preg, third 8 Medical [place] PO Box [id number] weeks Center Tom R, 1522, gestation of Walter Molina, 120, Medical [facility] [id number], [place], Walter 120, [place] [id number] Brayan, tel: , [place]. [place] tel: [phone]. [id number] tel:[phone] Reji Schmidt Supervision of Apr-2 Tom Referring In Womens other high risk 4-201 [place]. 700 Provider: Health [place], pregnancies, 8 Medical [place] PO Box second Center Tom R, 1522, trimesterDr Dexter, Walter Darshan Fan, nutritional and 120, Medical [place], metab diseases Brayan [place] [id number], comp preg, second [place], Walter 120, [place] tri27 weeks [id number] Brayan, tel: gestation of , [place]. [place] tel: [phone]. [id number] tel:[phone] Reji Renteria, nutritional Mar-2 Tom Referring In Womens and metab 9 [place]. 700 Provider: Health PA, diseases comp 8 Medical [place] PO Box preg, second Center Tom R, 1522, triEncntr for , Walter 700 Mita, suprvsn of normal 120, Medical [place], first Brayan martinez [place] [id number], second [place], Walter 120, [place] [email or web address] weeks [id number] Brayan, tel: gestation of , [place]. [place] tel: [phone]. [id number] tel:[phone] Reji Renteria, nutritional Mar-0 Tom Referring In Womens and metab [place]. 700 Provider: Health [place], diseases comp 8 Medical [place] PO Box preg, second Center Tom R, 1522, tri21 weeks , Walter Darshan Fan, gestation of 120, Medical [place], Brayan [place] [id number], [place], Walter 120, [place] [id number] Brayan, tel: , [place]. [place] tel: [phone]. [id number] tel:[phone] Reji Schmidt Supervision of Mar-0 Tom Referring In Womens Ultrasound other high risk -201 [place]. 700 Provider: Health PA, pregnancies, 8 Medical [place] PO Box second Center Tom R, 1522, trimesterDr Dexter [place] Darshan Fan, nutritional and 120, Medical [place], metab diseases Brayan [place] [id number], comp preg, second [place], Walter 120, [place] tri21 weeks [id number] Brayan, tel: gestation of , [place]. [place] tel: [phone]. [id number] tel:[phone] Reji Renteria, nutritional Feb-0 Tom Referring In Womens and metab [place]. 700 Provider: Health PA, diseases comp 8 Medical [place]idi PO Box preg, second Center Tom R, 1522, triEncntr for Walter Molina, suprvsn of normal 120, Medical [place], first juan, Brayan [place] [id number], second [place], Walter 120, [place] [id number] weeks [id number] Brayan, tel: gestation of , [place]. [place] tel: [phone]. [id number] tel:[phone] Reji Renteria, nutritional Bala- Tom Referring In Womens and metab [place]. 700 Provider: Health PA, diseases comp 8 Medical [place] PO Box preg, second Center Tom R, 1522, tri14 weeks Walter Molina, gestation of 120, Medical [place], [facility] [id number], [place], Walter 120, [place] [id number] Brayan, tel: , [place]. [place] tel: [phone]. [id number] tel:[phone] Reji Schmidt Supervision of Bala- Tom Referring In Womens Ultrasound other high risk 0-201 [place]. 700 Provider: Health PA, pregnancies, 8 Medical [place]idi PO Box first [email or web address] Center Tom R, 1522, weeks gestation Walter Molina, of 120, Medical [place]rayan FORD [place] [id number], [place], Walter 120, [place] [id number] Brayan, tel: , [place]. [place] tel: [phone]. [id number] tel:[phone] Reji Schmidt Supervision of Dec-2 Tom Referring In Womens other high risk 0-201 [place]. 700 Provider: Health PA, pregnancies, 7 Medical [place] PO Box first Center Tom R, 1522, trimesterEndo, Walter Molina, nutritional and 120, Medical [place], metab diseases Brayan [place] [id number], comp preg, first [place], Walter 120, [place] triEncntr screen [id number] Brayan, tel: for infections w , [place]. [place], sexl mode of tel: [phone]. transmissEncounte [id number] tel: r for screening [phone] for oth infec/parastc diseasesEncounter for screening of weeks gestation of [facility] Nov- Tom In Womens 0-[address], [address] [place] [address] [address], [address], Walter Stanly, 120, [place], Schmidt, [id number], [place], [place] [id number] tel: , [place]. [phone] tel: [phone] Family History Family Member Diagnosis Age At [...] Provider Payers Payer name Insurance type Covered green party ID Authorization(s) [facility] [id number] [facility] [id number] Social History Type Description Quantity Date Captured [...] Leia Delarosa BOOKED Future Order: Radiology Order Ultrasound OB Follow-up ([id number]) Ordered Future Order: Radiology Order Nuchal Translucency ([id number]) Ordered Future Order: Lab Order Pap Smear With HPV Reflex If ASCUS Ordered ([id number]), Collected on: Future Order: Radiology Order Complete OB Ultrasound > 14 Weeks Ordered ([id number]) Date Type Problem Goal Intervention Status Start [...]
--- OUTSIDE RECORDS SUMMARY | 2017-10-28 05:04 | External Medical Summary | Continuity of Care Document ---
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0 N 14:26:00 RDW 11.8 % 11.0-15.0 N 14:26:00 PLATELET COUNT 260 Thousand/uL 140-400 N 14:26:00 MPV 9.8 fL 7.5-12.5 N 14:26:00 ABSOLUTE 7394 cells/uL 1580-1473 N NEUTROPHILS 14:26:00 ABSOLUTE 1302 cells/uL 850-3900 N LYMPHOCYTES 14:26:00 ABSOLUTE 530 cells/uL 200-950 N MONOCYTES 14:26:00 ABSOLUTE 47 cells/uL 15-500 N EOSINOPHILS 14:26:00 ABSOLUTE 28 cells/uL 0-200 N BASOPHILS 14:26:00 NEUTROPHILS 79.5 % N 14:26:00 LYMPHOCYTES 14.0 % N 14:26:00 MONOCYTES 5.7 % N 14:26:00 EOSINOPHILS 0.5 % N 14:26:00 BASOPHILS 0.3 % N 14:26:00 ANTIBODY SCREEN, NO ANTIBODIES N RBC W/REFL ID, 14:26:00 DETECTED Reference range TITER AND AG No antibodies detected This assay is a screening test for the detection of red blood cell antibodies. The test is not to be used for pretransfusion screening or for the medical management of an alloimmunized . ABO GROUP O 14:26:00 RH TYPE RH(D) 14:26:00 POSITIVE RPR (DX) W/REFL NON-REACTIVE NON-REACTIV N TITER AND 14:26:00 E CONFIRMATORY TESTING HEPATITIS B NON-REACTIVE NON-REACTIV N SURFACE ANTIGEN 14:26:00 E RUBELLA ANTIBODY 1.75 index N Index (IGG) 14:26:00 Interpretation ----- <0.90 Not consistent with Immunity 0.90-0.99 Equivocal > or=1.00 Consistent with Immunity The presence of rubella IgG antibody suggests immunization or past or current infection withrubella virus.Test performed at [facility] [place] [id number] r: KAYLA CHASE DO,MPH Panel Description: HIV 1/2 ANTIGEN/ANTIBODY,FOURTH GENERATION W/RFL HIV NON-REACTIVE NON-REACTIVE N HIV-1 antigen and HIV-1/HIV- 2 antibodies were AG/AB, 14:26:00 notdetected. There is no laboratory evidence of 4TH GEN HIVinfection. PLEASE NOTE: This information has been disclosed toyou from records whose confidentiality may beprotected by state law. If your state requires suchprotection, then the state law prohibits you frommaking any further disclosure of the informationwithout the specific written consent of the personto whom it pertains, or as otherwise permitted by law.A general authorization for the release of medical orother information is NOT sufficient for this purpose. For additional information please refer tohttp://education.iOpener/faq/YSL558(This link is being provided for informational/educational purposes only.) The performance of this assay has not been clinicallyvalidated in patients less than 2 years old. Test performed at [facility] [id number]: KAYLA CHASE DO,MPH Panel Description: Thyrotropin [Units/volume] in Serum or Plasma TSH 14:26:00 11.75 mIU/L H Reference Range > or=20 Years 0.40-4.50 Ranges First trimester 0.26-2.66 Second trimester 0.55-2.73 Third trimester 0.43-2.91REPORT COMMENT:FASTING:NOTest performed at [facility] [address] [id number]: KAYLA CHASE DO,MPH Panel Description: Bacteria identified in Urine by Culture CULTURE, URINE, SEE NOTE CULTURE, URINE, ROUTINE MICRO ROUTINE 14:24:00 NUMBER: [id number] TEST STATUS: FINAL SPECIMEN SOURCE: URINE SPECIMEN QUALITY: ADEQUATE RESULT: Multiple organisms present, each less than 10,000 CFU/mL. These organisms, commonly found on external and internal genitalia, are considered to be colonizers. No further testing performed.REPORT COMMENT:RFASTING:UNKNOWNTest performed at [facility] [address] [id number]: KAYLA CHASE DO,MPH Panel Description: CHLAMYDIA/N. GONORRHOEAE RNA, TMA CHLAMYDIA NOT DETECTED NOT DETECTED N TRACHOMATIS RNA, 14:22:00 TMA NEISSERIA NOT DETECTED NOT DETECTED N GONORRHOEAE RNA, 14:22:00 TMA [id number] SEE NOTE This test was 14:22:00 performed using the APTIMA COMBO2 Assay([employer] The analytical performance characteristics of this assay, when used to test SurePath specimens havebeen determined by [employer] REPORT COMMENT:FASTING:UNKNO WNTest performed at [facility] [address] [id number]: KAYLA CHASE DO,MPH Advance Directives Directive Yes / No Effective Date File Name Unknown Encounters Encounter Practice Location Reason(s) Diagnoses Date Provider Care Team Description For Visit Members Reji Schmidt Tom In Women 2-[address] [place] [id number], Walter Molina, [facility] [place] [place], Brayan, [id number], [place], [id number] tel: , [place]. tel: [phone] [facility] Supervision of Tom Referring In Womens other high risk 0-201 [place]. 700 Provider: Health [place], pregnancies, first 7 Medical [place] PO Box trimesterEndo, [place] Tom R, 1522, nutritional and Walter Molina, metab diseases comp 120, Medical [place], preg, first [facility] [id number], triEncntr screen [place], [facility] [place] 120, [place] for infections w [id number] Brayan, tel: sexl mode of , [place]. [place], transmissEncounter tel: [phone]. for screening for [id number] tel: [facility] infec/parastc [phone] [facility] of [id number] weeks gestation of Reji Schmidt Feb- Tom In Womens 0-201 [facility] 700 Health [place], 7 Medical PO [address] Center [address]22, Walter Molina, 120, [place], Brayan [id number], [place], [id number] tel: , . tel: [phone] Family History Family Member Diagnosis Age At [...] name Insurance type Covered republican ID Authorization(s) [facility] LOGAN [id number] Social History Type Description Quantity Date Captured Alcohol Use Details No Caffeine Use Details soda 2 cups per day Tobacco Use Status Never smoked tobacco Smoking Status Never smoker Non-Smoking Tobacco Use : No Details Available : No Details Available Details Vital Signs Date / Height Weight BMI Pulse Blood Temperature Respiratory Body Head BMI Time: Rate Pressure Rate Surface Circumference percentile Area 221.70 32.0 123/ lbs 4 mm[Hg] 1:15 kg/m PM eter (2) Chief Complaint And Reason For Visit Unknown Chief Complaint And Reason For Visit Reason For Referral Reason For Referral Unknown Plan Of Care Date Type Action Status Appointment Leia Delarosa BOOKED Appointment Leia Delarosa BOOKED Future Order: Lab Order Pap Smear With [...]
--- OUTSIDE RECORDS SUMMARY | 2017-10-28 05:04 | External Medical Summary | Continuity of Care Document ---
:1985 Author Organization [facility] Address [address] [place], [place] [id number] Phone Care Team Providers Name Role Phone [...] Procedures Procedure Date OB Visit No Charge - JAIL GUARD Results Test Name Date and Time Measure Units Reference Range Abnormal Flag Comments Unknown Advance Directives Directive Yes / No Effective Date File Name Unknown Encounters Encounter Practice Location Reason(s) Diagnoses Date Provider Care Team Description For Visit Members Associates Brayan Renteria, nutritional Amado-2 Tom Referring In Womens and metab 8-201 [place]. 700 Provider: Health [place], diseases comp 8 Medical [facility], third [place] Tom R, 1522, triEncntr for Walter Molina, suprvsn of normal 120, Medical [place], first preg, third He [address] [id number], [id number] weeks [place], Walter 120, [place] gestation of [id number] Brayan, tel: , [place]. [place] tel: [phone]. [id number] tel:[phone] Reji Schmidt Amado-2 Tom In Womens 5-201 [place]. 700 Health [place], 8 [facility] 1522, Walter Molina, 120, [place], Brayan [id number], [place], [place] [id number] tel: , [place]. tel: [phone] Reji Schmidt Encntr for Amado-2 Tom Referring In Womens suprvsn of normal 1-201 [place]. 700 Provider: Health [place], first preg, third 8 Medical [facility] Box trimesterEncounte Center Tom R, 1522, r For Walter Molina, Screening For 120, Medical [place], Streptococcus B[address] [id number], weeks gestation [place], Walter 120, [place] of [id number] Brayan, tel: , [place]. [place], tel: [phone]. [id number] tel:[phone] Reji Schmidt Supervision of Amado-1 Tom Referring In Womens other high risk 1-201 [place]. 700 Provider: Health [place], pregnancies, 8 Medical [facility] Box third [place] Tom R, 1522, trimesterMaternal Walter Molina, care for excess 120, Medical [place], growth, He [address] [id number], third trimester, [place], Walter 120, [place] unspEndo, [id number] Brayan, tel: nutritional and , [place]. [place], metab diseases tel:[phone]. comp preg, third [id number] tel: tri34 weeks [id number] gestation of Associates Brayan Supervision of Amado-1 Tom Referring In Womens Ultrasound other high risk 1-201 [place]. 700 Provider: Health PA, pregnancies, 8 Medical [place] PO Box third Center Tom R, 1522, trimesterEndo, Walter Molina, nutritional and 120, Medical [place], metab diseases [facility] [id number], comp preg, third [place], Walter 120, [place] tri34 weeks [id number] Brayan, tel: gestation of , [place]. [place], tel:[phone]. [id number] tel:[phone] Reji Schmidt May-3 Tom In Womens 1-201 [place]. 700 Health PA, 8 Medical PO Box Center 1522, Walter Molina, 120, [place], Brayan, [id number], [place], [place] [id number] tel: , [place]. tel: [phone] Reji Schmidt Endo, nutritional May-3 Tom Referring In Womens and metab 0-201 [place]. 700 Provider: Health PA, diseases comp 8 Medical Chidi PO Box preg, third tri33 Center Tom R, 1522, weeks gestation Walter Molina, of 120, Medical [facility] [id number], [place], [facility] 120, [place] [id number] Brayan, tel: , [place]. [place], tel:[phone]. [id number] tel:[phone] Reji Schmidt Encntr for May-1 Tom Referring In Womens suprvsn of normal 7-201 [place]. 700 Provider: Health PA, first preg, third 8 Medical [place] PO Box [id number] weeks Center Tom R, 1522, gestation of Walter Molina, 120, Medical [facility] [id number], [place], Walter 120, [place] [id number] Brayan, tel: , [place]. [place], tel:[phone]. [id number] tel:[phone] Reji Schmidt Supervision of Apr-2 Tom Referring In Womens other high risk 4-201 [place]. 700 Provider: Health PA, pregnancies, 8 Medical [place] PO Box second Center Tom R, 1522, trimesterDr Dexter, Walter 700 Mita, nutritional and 120, Medical [place], metab diseases Brayan [place] [id number], comp preg, second [place], Walter 120, [place] tri27 weeks [id number] Brayan, tel:+ gestation of , [place]. [place] tel:[phone]. [id number] tel:[phone] Reji Renteria, nutritional Mar-2 Tom Referring In Womens and metab 9 [place]. 700 Provider: Health PA, diseases comp 8 Medical [place]idi PO Box preg, second Center Tom R, 1522, triEncntr for , Walter 700 Mita, suprvsn of normal 120, Medical [place], first Brayan martinez [place] , second [place], Walter 120, US [id number] weeks [id number] Brayan, tel: gestation of , [place]. [place] tel: [phone]. [id number] tel:[phone] Reji Renteria, nutritional Mar-0 Tom Referring In Womens and metab [place]. 700 Provider: Health PA, diseases comp 8 Medical [place] PO Box preg, second Center Tom R, 1522, tri21 weeks , Walter Darshan Fan, gestation of 120, Medical [place], He Schmidt Dr [id number], [place], Walter 120, [place] [id number] Brayan, tel: , [place]. [place] tel: [phone]. [id number] tel:[phone] Reji Schmidt Supervision of Mar-0 Tom Referring In Womens Ultrasound other high risk 7-201 [place]. 700 Provider: Health PA, pregnancies, 8 Medical [place] PO Box second Center Tom R, 1522, Dr Yvan, Walter Darshan Fan, nutritional and 120, Medical [place], metab diseases He [address] [place] [id number], comp preg, second [place], Walter 120, [place] tri21 weeks [id number] Brayan, tel: gestation of , [place]. [place] tel: [phone]. [id number] tel:[phone] Reji Renteria, nutritional Feb-0 Tom Referring In Womens and metab [place]. 700 Provider: Health PA, diseases comp 8 Medical [place] PO Box preg, second Center Tom R, 1522, triEncntr for Walter Molina suprvsn of normal 120, Medical [place], first juan, He Schmidt Dr [id number], second [place], Walter 120, US [id number] weeks [id number] Brayan, tel: gestation of , [place]. [place] tel: [phone]. [id number] tel:[phone] Reji Renteria, nutritional Apr- Tom Referring In Womens and metab [place]. 700 Provider: Health PA, diseases comp 8 Medical [place] PO Box preg, second Center Tom R, 1522, tri14 weeks Walter Molina, gestation of 120, Medical [place], Brayan [place] [id number], [place], Walter 120, [place] [id number] Brayan, tel: , [place]. [place] tel: [phone]. [id number] tel:[phone] Reji Schmidt Supervision of Apr- Tom Referring In Womens Ultrasound other high risk 0-201 [place]. 700 Provider: Health PA, pregnancies, 8 Medical [place] PO Box first [id number] Center Tom R, 1522, weeks gestation Walter Molina, of 120, Medical [place]rayan [address] [id number], [place], Walter 120, [place] [id number] Brayan, tel: , [place]. [place] tel: [phone]. [id number] tel:[phone] Reji Schmidt Supervision of Mar-2 Tom Referring In Womens other high risk 0-201 [place]. 700 Provider: Health PA, pregnancies, 7 Medical [place] PO Box first Center Tom R, 1522, trimesterEndo, Walter Molina, nutritional and 120, Medical [place], metab diseases He Schmidt Dr [id number], comp preg, first [place], Walter 120, [place] triEncntr screen [id number] Brayan, tel: for infections w , [place]. [place], sexl mode of tel: [phone]. transmissEncounte [id number] tel: r for screening [phone] for oth infec/parastc diseasesEncounter for screening of [id number] weeks gestation of Reji Schmidt Nov Tom In Womens 0-[address], [address] [place] [address] [address], [address], Walter [place], 120, [place], Schmidt, [id number], [place], [place] [id number] tel: , [place]. tel: [phone] Family History Family Member Diagnosis Age At [...] Insurance type Covered alliance party ID Authorization(s) [facility] [id number] [facility] [id number] Social History Type Description Quantity Date Captured Alcohol Use Details No Caffeine Use Details Unknown Tobacco Use Status Unknown Smoking Status Never smoker Vital Signs Date / Height Weight BMI Pulse Blood Temperature Respiratory Body Head BMI Time: Rate Pressure Rate Surface Circumference percentile Area 241.90 34.9 lbs 0 mm[Hg] 4:34 kg/m PM eter (2) Chief Complaint And Reason For Visit Unknown Chief Complaint And Reason For Visit Reason For Referral Reason For Referral Unknown Plan Of Care Date Type Action Status Appointment Leia Delarosa BOOKED Appointment Leia Delarosa BOOKED Future Order: Radiology Order Nuchal Translucency ([id number]) Ordered Future Order: Lab Order Pap Smear With HPV Reflex If ASCUS Ordered ([id number]), Collected on: Future Order: Radiology Order Complete OB Ultrasound > 14 Weeks Ordered ([id number]) Future Order: Radiology Order Ultrasound OB Follow-up ([id number]) Ordered Date Type Problem Goal Intervention Status [...]
--- OUTSIDE RECORDS SUMMARY | 2017-10-28 05:04 | External Medical Summary | Continuity of Care Document ---
:1985 Author Organization [facility] Address [address] [place], [place] [phone] Phone Care Team Providers Name Role Phone [...] In Womens Ultrasound other high risk 0-201 [place]. 700 Provider: Health PA, pregnancies, 8 Medical [facility] first [email or web address] Center Tom R, 1522, weeks gestation Dr, Walter Fan, of 120, Medical [place], Schmidt, [place] [id number], [place], [facility] 120, [place] [id number] Brayan, tel: , [place]. [place], tel:[phone]. [id number] tel:[phone] Reji Schmidt Dec-2 Tom In Womens 6-201 [place]. 700 Health PA, 7 Medical PO Box Center 1522, Walter Molina, 120, [place], Brayan, [id number], [place], [place] [id number] tel: , [place]. tel: [phone] Reji Schmidt Dec-2 Tom In Womens 2-201 [place]. 700 Health PA, 7 Medical PO Box Center 1522, Walter Molina, 120, [place], [place]rayan, [id number], [place], [place] [id number] tel: , [place]. tel: [phone] Reji Schmidt Supervision of Dec-2 Tom Referring In Womens other high risk 0-201 [place]. 700 Provider: Health PA, pregnancies, 7 [facility] Box first Center Tom R, 1522, trimesterEndo, Walter Molina, nutritional and 120, Medical [place], metab diseases [facility] [id number], comp preg, first [place], [facility] 120, [place] triEncntr screen [id number] Brayan, tel: for infections w , [place]. [place], sexl mode of tel: [phone]. transmissEncounte [id number] tel: r for screening [phone] for oth infec/parastc diseasesEncounter for screening of [id number] weeks gestation of Reij Schmidt Nov-2 Tom In Womens 0-201 [place]. 700 Health PA, 7 Medical PO Box Center 1522, Walter Molina, 120, [place], Brayan, [id number], [place], [place] [id number] tel: , [place]. tel:[phone] Family History Family [...] name Insurance type Covered republican ID Authorization(s) [facility] LOGAN [id number] Social History Type Description Quantity Date Captured [...] BOOKED Future Order: Radiology Order Nuchal Translucency ([id number]) Ordered Future Order: Lab Order Pap Smear [...]
--- OUTSIDE RECORDS SUMMARY | 2017-10-28 05:04 | External Medical Summary | Continuity of Care Document ---
:1985 Author Organization [facility] Address [address] [place], [place] [phone] Phone Care Team Providers Name Role Phone [...] Plasma by Detection limit <=0.05 mIU/L TSH 15:56:00 3.770 uIU/mL 0.450-4.500 Advance Directives Directive Yes / No Effective Date File Name Unknown Encounters Encounter Practice Location Reason(s) Diagnoses Date Provider Care Team Description For Visit Members Reji Schmidt Mar-0 Tom In Womens 8- [place]. 700 Health JAVID, Medical PO Box [place] 1522, Dr [facility] Mita, [facility], [place], Schmidt, [id number], [place], [id number] tel: , . tel: [phone] Reji Schmidt Endo, nutritional Mar-0 Tom Referring In Womens and metab 7- [place]. 700 Provider: Health JAVID, diseases comp 8 Medical [place] PO Box [facility], second Center Tom R, 1522, tri21 weeks Walter Molina [place], gestation of 120, Medical [place], [facility] , [place], [place] [address], [id number] Brayan, tel: , . [place] tel: [phone]. [id number] tel:[phone] Reji Schmidt Supervision of Mar-0 Tom Referring In Womens Ultrasound other high risk [place] [address] Provider: Health PA, pregnancies, 8 Medical [place] PO Box second Center Tom R, 1522, trimesterEndo, Walter Molina, nutritional and 120, Medical [place], metab diseases Brayan [place] [id number], comp preg, second [place], Walter 120, [place] tri21 weeks [id number] Brayan, tel:+[phone] gestation of , [place]. [place] tel: [phone]. [id number] tel:[phone] Reji Renteria nutritional Feb-0 Tom Referring In Womens and metab 7 [place]. 700 Provider: Health PA, diseases comp 8 Medical Ch[place] PO Box preg, second Center Tom R, 1522, triEncntr for Dr Walter Darshan Fan, suprvsn of normal 120, Medical [place], first preg, Brayan, [place] [id number], second [place], Walter 120, [place] [id number] weeks [id number] Brayan, tel:+316 gestation of , [place]. [place] tel: [phone]. [id number] tel:[phone] Reji Renteria, nutritional Bala-1 Tom Referring In Womens and metab 201 [place]. 700 Provider: Health PA, diseases comp 8 Medical [place] PO Box preg, second Center Tom R, 1522, tri14 weeks Walter Molina, gestation of 120, Medical [place], Schmidt, [place] [id number], [place], Walter 120, [place] [id number] Brayan, tel:+316 , [place]. [place] tel: [phone]. [id number] tel:[phone] Reji Schmidt Supervision of Bala-1 Tom Referring In Womens Ultrasound other high risk 0-201 [place]. 700 Provider: Health PA, pregnancies, 8 Medical [place] PO Box first [id number] Center Tom R, 1522, weeks gestation Walter Molina, of 120, Medical Brayan FORD [place] [id number], [place], Walter 120, [place] [id number] Brayan, tel:+316 , [place]. [place] tel: [phone]. [id number] tel:[phone] Reji Schmidt Supervision of Dec-2 Tom Referring In Womens other high risk 0-201 [place]. 700 Provider: Health PA, pregnancies, 7 [facility] Box [facility] Tom R, 1522, trimesterEndo, , Walter 700 [place], nutritional and 120, Medical [place], metab diseases [facility] [id number], comp preg, first [place], Walter 120, [place] triEncntr screen [id number] Brayan, tel:[phone] for infections w , [place]. [place], sexl mode of tel: [phone]. transmissEncounte [id number] tel:+316 r for screening [phone] for oth infec/parastc diseasesEncounter for screening of weeks gestation of Associates Brayan Feb- Tom In Womens 0-201 [place] [address] Health PA, 7 [facility] PO Box [place] 1522, , Walter [place], 120, [place], Brayan, [id number], [place], [place] [id number] tel: , [place]. tel: [phone] Family History Family Member Diagnosis Age At [...] Insurance type Covered constitution party ID Authorization(s) [facility] [id number] Social History Type Description Quantity Date Captured Alcohol Use Details No Caffeine Use Details Unknown Tobacco Use Status Unknown Smoking Status Never smoker Vital Signs Date / Height Weight BMI Pulse Blood Temperature Respiratory Body Head BMI Time: Rate Pressure Rate Surface Circumference percentile Area 230.30 33.2 128/86 -2018 lbs 3 mm[Hg] 3:38 kg/m PM eter (2) Chief Complaint And Reason For Visit Unknown Chief Complaint And Reason For Visit Reason For Referral Reason For Referral Unknown Plan Of Care Date Type Action Status Appointment Leia Delarosa BOOKED Future Order: Radiology Order Nuchal Translucency ([id number]) Ordered Future Order: Lab Order Pap Smear With HPV Reflex If ASCUS Ordered ([id number]), Collected on: Future Order: Radiology Order Complete OB Ultrasound > 14 Weeks Ordered ([id number]) Date Type Problem Goal Intervention Status Start [...]
--- OUTSIDE RECORDS SUMMARY | 2017-10-28 05:04 | External Medical Summary | Continuity of Care Document ---
:1985 Author Organization [facility] Address [address] [place], [place] [phone] Phone Care Team Providers Name Role Phone [...] In Womens Ultrasound other high risk 0-201 [place]. 700 Provider: Health PA, pregnancies, 8 Medical [place] PO Box first Center Tom R, 1522, weeks gestation Walter Molina, of 120, Medical [place], Schmidt, [place] [id number], [place], [facility] 120, [place] [id number] Brayan, tel: , [place]. [place], tel: [phone]. [id number] tel:[phone] Reji Schmidt Dec-2 Tom In Womens 2-201 [place]. 700 Health PA, 7 Medical PO Box Center 1522, Walter Molina, 120, [place], Brayan, [id number], [place], [place] [id number] tel: , [place]. tel: [phone] Reji Schmidt Supervision of Mar-2 Tom Referring In Womens other high risk 0-201 [place]. 700 Provider: Health PA, pregnancies, 7 Medical [facility] Box first Center Tom R, 1522, trimesterEndo, Walter Molina, nutritional and 120, Medical [place], metab diseases [facility] [id number], comp preg, first [place], [facility] 120, [place] triEncntr screen [id number] Brayan, tel: for infections w , [place]. [place], sexl mode of tel: [phone]. transmissEncounte [id number] tel: r for screening [phone] for oth infec/parastc diseasesEncounter for screening of [id number] weeks gestation of Reji Schmidt Nov-2 Tom In Womens 0-201 [place]. 700 Health PA, 7 Medical PO Box Center 1522, Walter Molina, 120, [place], Brayan, [id number], [place], [place] [id number] tel: , [place]. tel: [phone] Family History Family Member Diagnosis Age At [...] name Insurance type Covered democrat ID Authorization(s) [employer] LOGAN ALONSO [id number] Social History Type Description Quantity Date Captured [...] BOOKED Future Order: Radiology Order Nuchal Translucency ([id number]) Ordered Future Order: Lab Order Pap Smear [...]
--- OUTSIDE RECORDS SUMMARY | 2017-10-28 05:04 | External Medical Summary | Continuity of Care Document ---
:1985 Author Organization [facility] Address [address] [place], [place] [phone] Phone Care Team Providers Name Role Phone [...] Provider Care Team Description For Visit Members danielle Joy May- Tom Referring In Womens and metab 7 [place]. 700 Provider: Health PA, diseases comp 8 Medical [place] PO Box preg, second Center Tom R, 1522, triEncntr for Walter Molina, suprvsn of normal 120, Medical [place], first juan, He Schmidt Dr [id number], second [place], Walter 120, [place] [id number] weeks [id number] Brayan, tel:+ gestation of , [place]. [place] tel: [phone]. [id number] tel:[phone] Reji Schmidt Apr- Tom In Womens 8-201 [place]. 700 Health PA, 8 Medical PO Box Center 1522, Walter Molina, 120, [place] [id number], [place], [place] [id number] tel: , [place]. tel: [phone] danielle Joy Apr- Tom Referring In Womens and metab 7-201 [place]. 700 Provider: Health JAVID, diseases comp 8 Medical [place] PO Box preg, second Center Tom R, 1522, tri14 weeks Walter Molina, gestation of 120, Medical [place], He Schmidt Dr [id number], [place], Walter 120, [place] [id number] Brayan, tel: , [place]. [place], tel: [phone]. [id number] tel:[phone] Reji Schmidt Supervision of Apr- Tom Referring In Womens Ultrasound other high risk 0-201 [place]. 700 Provider: Health PA, pregnancies, 8 Medical [place] PO Box first [id number] Center Tom R, 1522, weeks gestation Walter Molina, of 120, Medical Brayan [address] [id number], [place], Walter 120, [place] [id number] Brayan, tel: , [place]. [place], tel: [phone]. [id number] tel:[phone] Reji Schmidt Mar-2 Tom In Womens 2-201 [place]. 700 Health PA, 7 Medical PO Box Center 1522, , Walter Fan, 120, [place], [place]rayan, [id number], [place], [place] [id number] tel: , [place]. tel: [phone] Reji Schmidt Supervision of Mar-2 Tom Referring In Womens other high risk 0-201 [place]. 700 Provider: Health PA, pregnancies, 7 [facility] Tom R, 1522, trimesterEndDr landen, [place] [address] [place], [facility] and [facility], [facility], metab diseases [facility] , comp preg, [facility], [place] [address], [place] triEncntr screen [id number] Brayan, tel: for infections w , [place]. [place], sexl mode of tel: [phone]. transmissEncounte [id number] tel: r for screening [phone] for oth infec/parastc diseasesEncounter for screening of [id number] weeks gestation of Reji Schmidt Feb-2 Tom In Womens 0-201 [place]. 700 Health PA, 7 [facility] PO Box Center 1522, , Walter Fan, 120, [place], Brayan, [id number], [place], [place] [id number] tel: , [place]. tel: [phone] Family History Family Member Diagnosis Age At [...] Insurance type Covered constitution party ID Authorization(s) [employer] ALONSO [id number] Social History Type Description Quantity Date Captured Unknown Vital Signs Date / Height Weight BMI Pulse Blood Temperature Respiratory Body Head BMI Time: Rate Pressure Rate Surface Circumference percentile Area Unknown Chief Complaint And Reason For Visit Unknown Chief Complaint And Reason For Visit Reason For Referral Reason For Referral Unknown Plan Of Care Date Type Action Status Appointment [place] Leia BOOKED Appointment Leia Delarosa BOOKED Future Order: Radiology Order Nuchal Translucency ([id number]) Ordered Future Order: Lab Order Pap Smear [...]
--- OUTSIDE RECORDS SUMMARY | 2017-10-28 05:04 | External Medical Summary | Continuity of Care Document ---
:1985 Author Organization [facility] [employer] [facility] Address [address] [place], [place] [address] Phone Care Team Providers Name Role Phone [...] second trimester 17 weeks gestation of - Supervision of other [...] Thyrotropin [Units/volume] in Serum or Plasma TSH 13:16:00 1.58 mIU/L N Reference Range > or=20 Years 0.40-4.50 Ranges First trimester 0.26-2.66 Second trimester 0.55-2.73 Third trimester 0.43-2.91REPORT COMMENT:FASTING:NOTest performed at [facility] [id number] [place] [address]Rmcvgqni: KAYLA CHASE DO,MPH Advance Directives Directive Yes / No Effective Date File Name Unknown Encounters Encounter Practice Location Reason(s) Diagnoses Date Provider Care Team Description For Visit Members Reji Renteria nutritional Tom Referring In Womens and metab Chidi. Darshan Provider: Health PA, diseases comp 8 Medical Chidi PO Box [facility], second Center Tom R, 1522, triEncntr for Walter Molina suprvsn of normal 120, Medical [place], first [facility], [facility] [id number], second [place], [facility] 120, [place] [email or web address] weeks [id number] Brayan, tel: gestation of , [place]. [place], tel: [phone]. [id number] tel:[phone] danielle Joy Tom Referring In Womens and metab 7201 Chidi. [facility] Provider: Health PA, diseases comp 8 Medical Chidi PO Box preg, second Center Tom R, 1522, tri14 weeks Walter Molina, gestation of 120, Medical [place], [facility] [id number], [place], Walter 120, [place] [id number] Brayan, tel: , . [place] tel: [phone]. [id number] tel:[phone] Reji Schmidt Supervision of Tom Referring In Womens Ultrasound other high risk 0-201 [place]. 700 Provider: Health PA, pregnancies, 8 Medical [place] PO Box first [email or web address] Center oTm R, 1522, weeks gestation , Walter Fan, of 120, Medical [place], Schmidt, [place] [id number], [place], Walter 120, [place] [id number] Brayan, tel: , [place]. [place], tel: [phone]. [id number] tel:[phone] Reji Schmidt Dec-2 Tom In Womens 2-201 [place]. 700 Health PA, 7 Medical PO Box Center 1522, Walter Molina, 120, [place], [place]rayan, [id number], [place], [place] [id number] tel: , [place]. tel: [phone] Reji Schmidt Supervision of Mar-2 Tom Referring In Womens other high risk 0-201 [place]. 700 Provider: Health PA, pregnancies, 7 Medical [facility] Box first Center Tom R, 1522, trimesterEndo, Dr [facility] Darshan Fan, nutritional and 120, Medical [place], metab diseases [facility] [id number], comp preg, first [place], [facility] 120, [place] triEncntr screen [id number] Brayan, tel: for infections w , [place]. [place], sexl mode of tel: [phone]. transmissEncounte [id number] tel: r for screening [id number] for oth infec/parastc diseasesEncounter for screening of [id number] weeks gestation of Reji Schmidt Nov-2 Tom In Womens 0-201 [place]. 700 Health PA, 7 Medical PO [address] Center [address], Walter Molina, 120, [place], [place]rayan, [id number], [place], [place] [id number] tel: , [place]. tel: [phone] Family History Family Member Diagnosis Age At [...] Covered constitution party ID Authorization(s) COLT ALONSO [id number] Social History Type Description Quantity Date Captured Alcohol Use Details No Caffeine Use Details Unknown Tobacco Use Status Unknown Smoking Status Never smoker Vital Signs Date / Height Weight BMI Pulse Blood Temperature Respiratory Body Head BMI Time: Rate Pressure Rate Surface Circumference percentile Area 225.70 32.5 124/80 2018 lbs 7 mm[Hg] 1:01 kg/m PM eter (2) Chief Complaint And Reason For Visit Unknown Chief Complaint And Reason For Visit Reason For Referral Reason For Referral Unknown Plan Of Care Date Type Action Status Appointment Leia Delarosa BOOKED Appointment Leia Delarosa BOOKED Future Order: Radiology Order Nuchal Translucency ([id number]) Ordered Future Order: Lab Order Pap Smear [...]
--- OUTSIDE RECORDS SUMMARY | 2017-10-28 05:04 | External Medical Summary | Continuity of Care Document ---
:1985 Author Organization [facility] [facility] Address [address] [place], [place] [address] Phone Care Team Providers Name Role Phone Subha Snell DO Unavailable Unavailable Allergies, Adverse Reactions, Alerts Substance Reaction Severity Status No Known Drug Allergies Unknown Active Medications Medication Instructions Dosage Effective Status Comments Dates (start - stop) levothyroxine 88 TAKE 1 TABLET BY - Active mcg tablet ORAL ROUTE EVERY DAY levothyroxine 100 TAKE 1 TABLET BY - Active mcg tablet ORAL ROUTE EVERY DAY (WITH THE 88MCG) acetaminophen 300 take 1 tablet by Not [...] second trimester 24 weeks gestation of - Supervision of other high risk - pregnancies, first trimester 13 weeks gestation of - Supervision of other high risk - pregnancies, first trimester Endo, nutritional and metab diseases - comp preg, first tri Encntr screen for infections w sexl - mode of transmiss Encounter for screening for oth Dec-20-2017 - infec/parastc diseases Encounter for screening of [...] Plasma by Detection limit <=0.05 mIU/L TSH 13:41:00 2.620 uIU/mL 0.450-4.500 Advance Directives Directive Yes / No Effective Date File Name Unknown Encounters Encounter Practice Location Reason(s) Diagnoses Date Provider Care Team Description For Visit Members Reji Schmidt Tom In Womens - [place] [address] Health JAVID, [facility] [address], Walter Molina, [address] [place], [place] [address]Brayan [id number], [place], [id number] tel: , . tel: [phone] Reji Schmidt Endo, nutritional Jun- Tom Referring In Womens and metab - [place] [address] Provider: Health JAVID diseases comp 8 [facility] Box [facility], second Center Tom Flores, 1522, triEncntr for Walter Molina, suprvsn of normal 120, Medical [place], first [place] [id number], second Walter FOR[place], [place] [email or web address] weeks [id number] Brayan, tel: gestation of , [place]. [place] tel:[phone]. [id number] tel:[phone] Associates Brayan Renteria nutritional Mar-0 Tom Referring In Womens and metab [place]. 700 Provider: Health PA, diseases comp 8 Medical Chidi PO Box preg, second Center Tom R, 1522, tri21 weeks Walter Molina, gestation of 120, Medical [place], He [address] [place] [id number], [place], Walter 120, [place] [id number] Brayan, tel: , [place]. [place] tel: [phone]. [id number] tel:[phone] Reji Schmidt Supervision of Mar-0 Tom Referring In Womens Ultrasound other high risk [place]. 700 Provider: Health PA, pregnancies, 8 Medical Chidi PO Box second Center Tom R, 1522, trimesterEndo, Walter Molina, nutritional and 120, Medical [place], metab diseases [place] [address] [id number], comp preg, second [place], Walter 120, [place] tri21 weeks [id number] Brayan, tel: gestation of , [place]. [place] tel: [phone]. [id number] tel:[phone] Reji Renteria nutritional Feb-0 Tom Referring In Womens and metab [place]. 700 Provider: Health PA, diseases comp 8 Medical Chidi PO Box preg, second Center Tom R, 1522, triEncntr for Walter Molina, suprvsn of normal 120, Medical [place], first preg, He [place] [id number], second [place], Walter 120, [place] [email or web address] weeks [id number] Brayan, tel: gestation of , [place]. [place] tel: [phone]. [id number] tel:[phone] Reji Renteria nutritional Bala-1 Tom Referring In Womens and metab [place]. 700 Provider: Health PA, diseases comp 8 Medical Chidi PO Box preg, second Center Tom R, 1522, tri14 weeks Walter Molina, gestation of 120, Medical [place], He [address] [place] [id number], [place], Walter 120, [place] [id number] Brayan, tel: , [place]. [place], tel: [phone]. [id number] tel:[phone] Reji Schmidt Supervision of Apr- Tom Referring In Womens Ultrasound other high risk 0-201 [place]. 700 Provider: Health PA, pregnancies, 8 Medical [facility] Box first [email or web address] Center Tom R, 1522, weeks gestation , Walter [place], of 120, Medical [place], [facility] [id number], [place], [facility] 120, [place] [id number] [place]rayan, tel: , [place]. [place], tel: [phone]. [id number] tel:[phone] Reji Schmidt Supervision of Tom Referring In Womens other high risk 0-201 [place]. 700 Provider: Health PA, pregnancies, 7 [facility] Box [facility] Tom R, 1522, trimesterEndoDr, Walter Fan, nutritional and 120, Medical [place], metab diseases [facility] [id number], comp preg, first [place], [facility] 120, [place] triEncntr screen [id number] Brayan, tel: for infections w , [place]. [place], sexl mode of tel: [phone]. transmissEncounte [id number] tel: r for screening [phone] for oth infec/parastc diseasesEncounter for screening of weeks gestation of Reji Schmidt Feb- Tom In Womens 0-201 [place]. 700 Health ID, 7 Medical PO [address], Walter Molina, 120, [place], [id number], [place] [id number] tel: , [place]. tel: [phone] Family History Family Member Diagnosis Age At [...] name Insurance type Covered democrat ID Authorization(s) [facility] [place] ALONSO [id number] Social History Type Description Quantity Date Captured Alcohol Use Details No Caffeine Use Details Unknown Tobacco Use Status Unknown Smoking Status Never smoker Vital Signs Date / Height Weight BMI Pulse Blood Temperature Respiratory Body Head BMI Time: Rate Pressure Rate Surface Circumference percentile Area 233.90 33.7 114/73 -2018 lbs 5 mm[Hg] 1:25 kg/m PM eter (2) Chief Complaint And Reason For Visit Unknown Chief Complaint And Reason For Visit Reason For Referral Reason For Referral Unknown Plan Of Care Date Type Action Status Appointment Leia Delarosa BOOKED Future Order: Radiology Order Nuchal Translucency ([id number]) Ordered Future Order: Lab Order Pap Smear With HPV Reflex If ASCUS Ordered ([id number]), Collected on: Future Order: Radiology Order Complete OB Ultrasound > 14 Weeks Ordered ([id number]) Date Type Problem Goal Intervention Status Start [...]
--- OUTSIDE RECORDS SUMMARY | 2017-10-28 05:05 | External Medical Summary | Continuity of Care Document ---
:1985 Author Organization [facility] Allergies Active Description Code Type Severity Reaction Onset Reported/ Identified Relationship Clinical to Patient Status Yes No Known 15632 3 N/A N/A Drug 0 Allergies Yes No Known Aller Unknown N/A 10/10/2017 Allergies gy Medications Medication Packaging Start Date Stop Date Route Dosage Sig Tablet 03/20/2017 ACETAMINOPHEN-CODEI take 1 NE tablet by oral route every 6 hours as needed Tablet 04/07/2017 LEVOTHYROXINE 8 take 1 SODIUM tablet by oral route every day Tablet 06/22/2017 LEVOTHYROXINE 8 take 1 SODIUM tablet by oral route every day (with the 88mcg) Tablet 06/22/2017 LEVOTHYROXINE 8 take 1 SODIUM tablet by oral route every day Tablet 07/26/2017 LEVOTHYROXINE 8 TAKE 1 SODIUM TABLET BY ORAL ROUTE EVERY DAY (WITH THE 88MCG) Tablet 07/26/2017 LEVOTHYROXINE 8 TAKE 1 SODIUM TABLET BY ORAL ROUTE EVERY DAY Tablet 08/29/2017 LEVOTHYROXINE 8 TAKE 1 SODIUM TABLET BY ORAL ROUTE EVERY DAY (WITH THE 88MCG) Tablet 08/29/2017 LEVOTHYROXINE 8 TAKE 1 SODIUM TABLET BY ORAL ROUTE EVERY DAY Tablet 09/14/2017 LEVOTHYROXINE take 1 SODIUM tablet by oral route every day Tablet 10/09/2017 LEVOTHYROXINE TAKE 1 SODIUM TABLET BY ORAL ROUTE EVERY DAY (WITH THE 88MCG) Tablet 10/09/2017 LEVOTHYROXINE TAKE 1 SODIUM TABLET BY ORAL ROUTE EVERY DAY Tylenol 10/10/2017 PO 500 mg PRN 10/10/2017 PO 1 each Vitamins DAILY Iron 10/10/2017 PO 325 mg DAILY 10/10/2017 PO 100 mcg Synthroid ACB 10/10/2017 PO 88 mcg Synthroid ACB Problems Date Dx Coded Attending Type Code Diagnosis Diagnosed By 09/29/2015 W H52.13 Myopia, bilateral 09/29/2015 W H52.223 Regular astigmatism, bilateral 09/30/2015 W H52.13 Myopia, bilateral 09/30/2015 W H52.223 Regular astigmatism, bilateral 04/26/2017 Chidi Santos O09.891 Supervision of other high risk pregnancies, first trimester 04/26/2017 Chidi Santos Z3A.13 13 weeks gestation of 06/21/2017 Chidi Santos O09.892 Supervision of other high risk pregnancies, second trimester 06/21/2017 Chidi Santos O99.282 Endo, nutritional and metab diseases comp preg, second tri 06/21/2017 Chidi Santos Z3A.21 21 weeks gestation of 09/25/2017 Chidi Santos O09.893 Supervision of other high risk pregnancies, third trimester 09/25/2017 Chidi Santos O99.283 Endo, nutritional and metab diseases comp preg, third tri 09/25/2017 Chidi Santos Z3A.34 34 weeks gestation of Procedures Code Description [place] [address] EYE EXAM T 09/29/2015 TREATMENT 81826 REFRACTION 09/29/2015 84521 Contact Lens 09/29/2015 Fitt[place] [address]132 Ultrasound, 04/26/2017 Nuchal Translucency Measurement 82964 Ultrasnd exam 06/21/2017 of preg uterus, compl 36048 Ultrasnd preg 09/25/2017 uterus, flwup/repeat Results Test Result Range T4+TSH+T4F+T3Free - 03/22/16 17:47 TSH 0.260 uIU/mL 0.450-4.500 Thyroxine (T4) 11.8 ug/dL 4.5-12.0 T4,Free(Direct) 1.59 ng/dL 0.82-1.77 Triiodothyronine,Free,Serum 3.2 pg/mL 2.0-4.4 CMP14+LP+CBC/D/Plt+TSH - 11/10/16 09:16 WBC 5.4 x10E3/uL 3.4-10.8 RBC 4.66 x10E6/uL 3.77-5.28 Hemoglobin 14.6 g/dL 11.1-15.9 Hematocrit 43.0 % 34.0-46.6 MCV 92 fL 79-97 MCH 31.3 pg 26.6-33.0 MCHC 34.0 g/dL 31.5-35.7 RDW 12.4 % 12.3-15.4 Platelets 250 x10E3/uL 150-379 Neutrophils 70 % Lymphs 21 % Monocytes 8 % Eos 1 % Basos 0 % Neutrophils (Absolute) 3.8 x10E3/uL 1.4-7.0 Lymphs (Absolute) 1.1 x10E3/uL 0.7-3.1 Monocytes(Absolute) 0.4 x10E3/uL 0.1-0.9 Eos (Absolute) 0.1 x10E3/uL 0.0-0.4 Baso (Absolute) 0.0 x10E3/uL 0.0-0.2 Immature Granulocytes 0 % Immature Grans (Abs) 0.0 x10E3/uL 0.0-0.1 TSH 0.057 uIU/mL 0.450-4.500 Glucose, Serum 102 mg/dL 65-99 BUN 7 mg/dL 6-20 Creatinine, Serum 0.70 mg/dL 0.57-1.00 eGFR If NonAfricn Am 116 mL/min/1.73 >59 eGFR If Africn Am 134 mL/min/1.73 >59 BUN/Creatinine Ratio 10 9-23 Sodium, Serum 141 mmol/L 134-144 Potassium, Serum 4.2 mmol/L 3.5-5.2 Chloride, Serum 100 mmol/L 96-106 Carbon Dioxide, Total 19 mmol/L 18-29 Calcium, Serum 9.3 mg/dL 8.7-10.2 Protein, Total, Serum 7.3 g/dL 6.0-8.5 Albumin, Serum 4.8 g/dL 3.5-5.5 Globulin, Total 2.5 g/dL 1.5-4.5 A/G Ratio 1.9 1.2-2.2 Bilirubin, Total 0.5 mg/dL 0.0-1.2 Alkaline Phosphatase, S 75 IU/L 39-117 AST (SGOT) 18 IU/L 0-40 ALT (SGPT) 16 IU/L 0-32 Cholesterol, Total 139 mg/dL 100-199 Triglycerides 91 mg/dL 0-149 HDL Cholesterol 45 mg/dL >39 VLDL Cholesterol Michel 18 mg/dL 5-40 LDL Cholesterol Calc 76 mg/dL 0-99 Thyroxine (T4) Free, Direct, S - 11/10/16 09:16 T4,Free(Direct) 2.03 ng/dL 0.82-1.77 Triiodothyronine,Free,Serum - 11/10/16 09:16 Triiodothyronine,Free,Serum 3.3 pg/mL 2.0-4.4 T4+TSH+T4F+T3Free - 02/06/17 15:58 TSH 1.720 uIU/mL 0.450-4.500 Thyroxine (T4) 9.3 ug/dL 4.5-12.0 T4,Free(Direct) 1.39 ng/dL 0.82-1.77 Triiodothyronine,Free,Serum 2.8 pg/mL 2.0-4.4 Encounters ACCT No. Visit Discharge Status Pt. Type Provider Facility Loc./Unit Complaint Date/Time [id number] 10/19/2017 10/19/2017 [facility] Outpatient Tom, 13:20:00 23:59:59 Chidi Flores [id number] 10/17/2017 10/17/2017 CLS Outpatient Saavedra, 11:15:00 23:59:59 Karmen Isabel [id number] 10/12/2017 10/12/2017 CLS Outpatient Tom, 13:45:00 23:59:59 Chidi Flores [id number] 10/09/2017 10/09/2017 CLS Outpatient Tom, 08:11:00 23:59:59 Chidi Flores [id number] 10/05/2017 10/05/2017 CLS Outpatient Tom, 13:20:00 23:59:59 Chidi Flores [id number] 09/25/2017 09/25/2017 CLS Outpatient Tom, 16:20:00 23:59:59 Chidi Flores [id number] 09/25/2017 09/25/2017 CLS Outpatient Tom, 15:45:00 23:59:59 Chidi Flores [id number] 09/14/2017 09/14/2017 CLS Outpatient Tom, 09:31:00 23:59:59 Chidi Flores [id number] 09/13/2017 09/13/2017 CLS Outpatient Tom, 13:40:00 23:59:59 Chidi Flores [id number] 08/31/2017 08/31/2017 CLS Outpatient Tom, 13:15:00 23:59:59 Chidi Flores [id number] 08/29/2017 08/29/2017 CLS Outpatient Tom, 10:51:00 23:59:59 Chidi Flores [id number] 08/08/2017 08/08/2017 CLS Outpatient Tom, 13:45:00 23:59:59 Chidi Flores [id number] 07/26/2017 07/26/2017 CLS Outpatient Tom, 09:19:00 23:59:59 Chidi Flores [id number] 07/13/2017 07/13/2017 CLS Outpatient Tom, 13:30:00 23:59:59 Chidi Flores [id number] 06/22/2017 06/22/2017 CLS Outpatient Tom, 08:18:00 23:59:59 Chidi Flores [id number] 06/21/2017 06/21/2017 CLS Outpatient Tom, 15:35:00 23:59:59 Chidi Flores [id number] 06/21/2017 06/21/2017 CLS Outpatient Tom, 15:15:00 23:59:59 Chidi Flores [id number] 05/25/2017 05/25/2017 CLS Outpatient Tom, 09:53:00 23:59:59 Chidi Flores [id number] 05/24/2017 05/24/2017 CLS Outpatient Tom, 13:15:00 23:59:59 Chidi Flores [id number] 05/04/2017 05/04/2017 CLS Outpatient Tom, 08:05:00 23:59:59 Chidi Flores [id number] 05/03/2017 05/03/2017 CLS Outpatient Tom, 13:15:00 23:59:59 Chidi Flores [id number] 04/26/2017 04/26/2017 CLS Outpatient Tom, 15:15:00 23:59:59 Chidi Flores [id number] 04/11/2017 04/11/2017 CLS Outpatient Tom, 10:46:00 23:59:59 Chidi Flores [id number] 04/07/2017 04/07/2017 CLS Outpatient Tom, 11:02:00 23:59:59 Chidi Flores [id number] 04/06/2017 04/06/2017 CLS Outpatient Tom, 15:14:00 23:59:59 Chidi Flores [id number] 04/05/2017 04/05/2017 CLS Outpatient Tom, 13:15:00 23:59:59 Chidi Flores [id number] 03/06/2017 03/06/2017 CLS Outpatient Tom, 16:23:00 23:59:59 Chidi Flores [id number] 10/26/2017 ACT Outpatient Tom, 13:30:00 Chidi Flores [id number] 09/29/2015 Document 11:20:00 Registrati on [id number] 11/01/2017 PEN Preadmit 43 00:00:00 [id number] 10/28/2017 ACT Outpatient ERIK Schmidt poss labor 03 04:58:00 , [facility] [id number] 03/23/2016 Document 38 08:38:00 Registrati on [id number] 11/11/2016 Document 39 08:39:00 Registrati on [id number] 02/07/2017 Document 38 08:38:00 Registrati on
--- OUTSIDE RECORDS SUMMARY | 2017-10-28 05:05 | External Medical Summary ---
:1985 Author Organization [employer] 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
--- OUTSIDE RECORDS SUMMARY | 2017-10-28 05:05 | External Medical Summary ---
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 32778807 multinodular goiter Problem Hypocalcemia E83.51 Active 3253530 Problem Well woman exam Z01.419 Active 249027124 Problem Hypothyroidism, E03.9 Active 97937328 Unspecified ALLERGIES No Information SOCIAL HISTORY Never Assessed PLAN OF CARE VITAL SIGNS MEDICATIONS Medication Instructions Dosage Frequency Start End Duration Status Date Date Levothyroxine orally once a 1 tab(s) 24h 28 Oct, 30 day(s) Active Sodium 125 mcg day 2016 (0.125 mg) RESULTS No Results PROCEDURES No Known procedures IMMUNIZATIONS No Known Immunizations MEDICAL (GENERAL) HISTORY Type Description Date Medical History migraines Medical History multinodule thyroid Medical History HOTH Medical History Hypocalcemia Surgical History wisdom teeth removed 1999 Surgical History thyroid removal 02-14-13
--- OUTSIDE RECORDS SUMMARY | 2017-10-28 05:05 | External Medical Summary ---
:1985 Author Organization [facility] [employer] 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
--- OUTSIDE RECORDS SUMMARY | 2017-10-28 05:05 | External Medical Summary ---
:1985 Author Organization [facility], 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 10909360 multinodular goiter Problem Hypocalcemia E83.51 Active 5137336 Problem Well woman exam Z01.419 Active 737890969 Problem Hypothyroidism, E03.9 Active 69903692 Unspecified ALLERGIES No Information SOCIAL HISTORY Never Assessed PLAN OF CARE VITAL SIGNS MEDICATIONS Unknown Medications RESULTS No Results PROCEDURES No Known procedures IMMUNIZATIONS No Known Immunizations MEDICAL (GENERAL) HISTORY Type Description Date Medical History migraines Medical History multinodule thyroid Medical History HOTH Medical History Hypocalcemia Surgical History wisdom teeth removed 1999 Surgical History thyroid removal 02-14-13
--- OUTSIDE RECORDS SUMMARY | 2017-10-28 05:05 | External Medical Summary ---
:1985 Author Organization [facility] [employer] 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
--- OUTSIDE RECORDS SUMMARY | 2017-10-28 05:05 | External Medical Summary ---
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
--- OUTSIDE RECORDS SUMMARY | 2017-10-28 05:05 | External Medical Summary | Continuity of Care Document ---
:1985 Author Organization [facility] Address [address] [place], [place] [id number] Phone Care Team Providers Name Role Phone [...] by Not Available - Active iron-800 mcg oral route every tablet day Tylenol Extra take 2 tablet by 1000 MG - Active Strength 500 mg oral route every tablet 6 hours as needed levothyroxine 100 TAKE 1 TABLET BY - No Longer mcg tablet ORAL ROUTE EVERY Active DAY (WITH THE 88MCG) Problems Condition Effective Dates (start - stop) [...] Tom Referring In Womens other high risk -[address] [place]. 700 Provider: Health [place], [facility], 8 Medical [facility] Tom R, 1522, Dr Yvan [facility] Darshan Fan, nutritional and 120, Medical [place], metab diseases [facility] [id number], comp preg, second [place], [facility] 120, tri27 weeks [id number] Brayan, tel: gestation of , [place]. [place], tel: [phone]. [id number] tel:[phone] Reji Schmidt Jul- Tom In Womens 1-201 [place]. 700 Health [place], 8 Medical [address], Walter Molina, 120, [place] [id number], [place], [place] [id number] tel: , [place]. tel: [phone] Associates Brayan Renteria, nutritional Mar-2 Tom Referring In Womens and metab 9 [place]. 700 Provider: Health [place], diseases comp 8 Medical Chidi PO Box preg, second Center Tom R, 1522, triEncntr for Walter Molina suprvsn of normal 120, Medical [place], first preg, He Schmidt Dr [id number], second [place], Walter 120, [place] [id number] weeks [id number] Brayan, tel: gestation of , [place]. [place] tel: [phone]. [id number] tel:[phone] Associates Brayan Renteria, nutritional Mar-0 Tom Referring In Womens and metab [place]. 700 Provider: Health [place], diseases comp 8 Medical Chidi PO Box preg, second Center Tom R, 1522, tri21 weeks Walter [place], gestation of 120, Medical [place], He [address] [id number], [place], Walter 120, [place] [id number] Brayan, tel: , [place]. [place] tel: [phone]. [id number] tel:[phone] Reji Schmidt Supervision of Mar-0 Tom Referring In Womens Ultrasound other high risk [place]. 700 Provider: Health [place], pregnancies, 8 Medical Chidi PO Box second Center Tom R, 1522, trimesterEndo, Walter Molina, nutritional and 120, Medical [place], metab diseases He [address] [id number], comp preg, second [place], Walter 120, [place] tri21 weeks [id number] Brayan, tel: gestation of , [place]. [place] tel: [phone]. [id number] tel:[phone] Associates Brayan Renteria, nutritional Feb-0 Tom Referring In Womens and metab [place]. 700 Provider: Health [place], diseases comp 8 Medical Chidi PO Box preg, second Center Tom R, 1522, triEncntr for Walter Molina suprvsn of normal 120, Medical [place], first preg, He Schmidt [place] [id number], second [place], Walter 120, [place] [id number] weeks [id number] Brayan, tel: gestation of , [place]. [place], tel: [phone]. [id number] tel:[phone] Reji Schmidt Endo, nutritional Bala-1 Tom Referring In Womens and metab 7-201 [place]. 700 Provider: Health [place], diseases comp 8 Medical Chidi PO Box preg, second Center Tom R, 1522, tri14 weeks Walter Molina [place], gestation of 120, Medical [place], [facility] [id number], [place], [facility] 120, [place] [id number] Brayan, tel: , [place]. [place] tel: [phone]. [id number] tel:[phone] Reji Schmidt Supervision of Apr- Tom Referring In Womens Ultrasound other high risk 0-201 [place]. 700 Provider: Health [place], pregnancies, 8 Medical Chidi PO Box first [email or web address] Center Tom R, 1522, weeks gestation Walter Molina, of 120, Medical [place], [facility] [id number], [place], [facility] 120, [place] [id number] Brayan, tel: , [place]. [place] tel: [phone]. [id number] tel:[phone] Reji Schmidt Supervision of Mar-2 Tom Referring In Womens other high risk 0-201 [place]. 700 Provider: Health [place], pregnancies, 7 Medical Chidi PO Box first Center Tom R, 1522, trimesterEnd[address] [place], nutritional and 120, Medical [place], metab diseases [place]ray[place] [id number], comp preg, first [place], [facility] 120, [place] triEncntr screen [id number] Brayan, tel: for infections w , [place]. [place] sexl mode of tel: [phone]. transmissEncounte [id number] tel:[phone] r for screening [id number] for oth infec/parastc diseasesEncounter for screening of mbismg08 weeks gestation of Reji Schmidt Nov-2 Tom In Womens 0-201 [place]. 700 Health [place], 7 Medical [address], Walter Molina, 120, [place] [id number], [place], [id number] tel:[phone] , Q[place]. [id number] tel: [phone] Family History Family Member Diagnosis Age At [...] Insurance type Covered green party ID Authorization(s) [facility] [place] [id number] Social History Type Description Quantity Date Captured [...] BOOKED Future Order: Radiology Order Nuchal Translucency ([id number]) Ordered Future Order: Lab Order Pap Smear With HPV Reflex If ASCUS Ordered ([id number]), Collected on: Future Order: Radiology Order Complete OB Ultrasound > 14 Weeks Ordered ([id number]) Date Type Problem Goal Intervention Status Start Date Unknown. History Of Present Illness Encounter Date Complaint History Of Present Illness This patient has no known history of present illness Functional Status Encounter Date Functional Assessment Cognitive Assessment Unknown Medications Administered Medication Instructions Dosage Effective Dates Status Comments (start - stop) levothyroxine 100 mcg TAKE 1 TABLET BY - No Longer tablet ORAL ROUTE EVERY Active DAY (WITH THE 88MCG) Instructions Date Instruction Additional Information travel use [...]
--- OUTSIDE RECORDS SUMMARY | 2017-10-28 05:05 | External Medical Summary ---
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
--- OUTSIDE RECORDS SUMMARY | 2017-10-28 05:05 | External Medical Summary ---
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
--- OUTSIDE RECORDS SUMMARY | 2017-10-28 05:05 | External Medical Summary ---
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 50789369 multinodular goiter Problem Hypocalcemia E83.51 Active 0918504 Problem Well woman exam Z01.419 Active 351305920 Problem Hypothyroidism, E03.9 Active 02420333 Unspecified ALLERGIES No Known Allergies SOCIAL HISTORY Never Assessed PLAN OF CARE Activity Details Follow Up F/U will be determined by lab/study results - we will call Reason: VITAL SIGNS Height 70 1/2 in 2016-11-10 Weight 203.6 lbs 2016-11-10 Temperature 98.1 degrees Fahrenheit 2016-11-10 Respiratory Rate 20 /min 2016-11-10 BMI 28.80 kg/m2 2016-11-10 Blood pressure systolic 124 mm Hg 2016-11-10 Blood pressure diastolic 80 mm Hg 2016-11-10 MEDICATIONS Medication Instructions Dosage Frequency Start End Duration Status Date Date IBU-200 200 mg orally q 6h prn 2 tab(s) 10 day(s) Active Maxalt 10 mg orally at onset 1 tab(s) Oct, Active of migraine, august 2016 repeat in 2 hours. Maximum 2 per day multi vitamin 1 q d Active levothyroxine 150 orally once a 1 tab(s) 24h 17 Jun, 30 day(s) Active mcg (0.15 mg) day 2015 Topamax 25 mg orally 2 times a 1 tab(s) 12h Oct, day(s) Active day 2016 Excedrin Migraine orally q 6hr prn 2 tab(s) 5 day(s) Active 250 mg-250 mg-65 mg RESULTS Name Result Date Reference Range T3 FREE 2016-11-10 Triiodothyronine,Free,Serum 3.3 2.0-4.4 T4 FREE 2016-11-10 T4,Free(Direct) 2.03 0.82-1.77 PANEL WELL ADULT 2016-11-10 Glucose, Serum 102 65-99 BUN 7 6-20 Creatinine, Serum 0.70 0.57-1.00 BUN/Creatinine Ratio 10 9-23 Sodium, Serum 141 134-144 Potassium, Serum 4.2 3.5-5.2 Chloride, Serum 100 96-106 Carbon Dioxide, Total 19 18-29 Calcium, Serum 9.3 8.7-10.2 Protein, Total, Serum 7.3 6.0-8.5 Albumin, Serum 4.8 3.5-5.5 Globulin, Total 2.5 1.5-4.5 A/G Ratio 1.9 1.2-2.2 Bilirubin, Total 0.5 0.0-1.2 Alkaline Phosphatase, S 75 39-117 AST (SGOT) 18 0-40 ALT (SGPT) 16 0-32 Cholesterol, Total 139 100-199 Triglycerides 91 0-149 HDL Cholesterol 45 >39 VLDL Cholesterol Michel 18 5-40 LDL Cholesterol Calc 76 0-99 TSH 0.057 0.450-4.500 WBC 5.4 3.4-10.8 RBC 4.66 3.77-5.28 Hemoglobin 14.6 11.1-15.9 Hematocrit 43.0 34.0-46.6 MCV 92 79-97 MCH 31.3 26.6-33.0 MCHC 34.0 31.5-35.7 RDW 12.4 12.3-15.4 Platelets 250 150-379 Neutrophils 70 Lymphs 21 Monocytes 8 Eos 1 Basos 0 Neutrophils (Absolute) 3.8 1.4-7.0 Lymphs (Absolute) 1.1 0.7-3.1 Monocytes(Absolute) 0.4 0.1-0.9 Eos (Absolute) 0.1 0.0-0.4 Baso (Absolute) 0.0 0.0-0.2 Hematology Comments: PROCEDURES Procedure Date Ordered Result Body Site GENERAL HEALTH PANEL Proc. November 10, 2016 TRIIODOTHYRONINE T3; FREE Proc. November 10, 2016 LIPID PANEL Proc. November 10, 2016 venipuncture VENOUS BLD VENIPProc. November 10, 2016 THYROXINE; FREE Proc. November 10, 2016 IMMUNIZATIONS No Known Immunizations MEDICAL (GENERAL) HISTORY Type Description Date Medical History migraines Medical History multinodule thyroid Medical History HOTH Medical History Hypocalcemia Surgical History wisdom teeth removed 1999 Surgical History thyroid removal 02-14-13
--- OUTSIDE RECORDS SUMMARY | 2017-10-28 05:05 | External Medical Summary ---
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 Unknown Non Drug Allergy Sep, Unknown SOCIAL HISTORY No smoking Hx information available PLAN OF CARE VITAL SIGNS Height 70 1/2 in 2015-10-12 Weight 207.4 lbs 2015-10-12 Temperature 97.8 degrees Fahrenheit 2015-10-12 Respiratory Rate 16 /min 2015-10-12 BMI 29.33 kg/m2 2015-10-12 Blood pressure systolic 122 mm Hg 2015-10-12 Blood pressure diastolic 82 mm Hg 2015-10-12 MEDICATIONS Medication Instructions Dosage Frequency Start End Duration Status Date Date levothyroxine 150 orally once a 1 tab(s) 24h Jun, day(s) Active mcg (0.15 mg) day 2015 multi vitamin 1 q d Active Excedrin Migraine orally q 6hr prn 2 tab(s) 5 day(s) Active 250 mg-250 mg-65 mg IBU-200 200 mg orally q 6h prn 2 tab(s) 10 day(s) Active RESULTS No Results PROCEDURES Procedure Date Ordered Related Diagnosis Body Site PREV. EST PT;18-39yrs October 12, 2015 Lab Bela Billing for lab October 12, 2015 IMMUNIZATIONS No Known Immunizations
[2017-10-28] MEDS ORDERED: CARBOPROST 250 MCG/ML INJECTION IM PRN (05:22)
[2017-10-28] MEDS ORDERED: CALCIUM CARBONATE Chewable 500mg TABLET PO PRN (05:22)
[2017-10-28] MEDS ORDERED: SALINE FLUSH 10ml SYRINGE IV PRN (05:22)
[2017-10-28] MEDS ORDERED: METHYLERGONOVINE 0.2 MG/ML INJECTION IM PRN (05:22)
[2017-10-28] MEDS ORDERED: LIDOCAINE 1% (10mg/ml) 2mL INJ PF SDV ID PRN (05:22)
[2017-10-28] MEDS ORDERED: MAG-AL + SIM ORAL LIQUID 30ml PO PRN (05:22)
[2017-10-28] MEDS ORDERED: ACETAMINOPHEN 500 MG TABLET PO PRN (05:22)
[2017-10-28] MEDS: D5LR 1,000 ML IV PRN ×2 (06:07→14:01)
[2017-10-28] MEDS: OXYTOCIN DRIP 30 UNIT/500 ML ML IV PRN ×2 (06:07→23:10)
[2017-10-28] MEDS: LR 1,000 ML IV PRN ×4 (06:21→18:24)
[2017-10-28] MEDS ORDERED: CEFAZOLIN PREMIX (MC ONLY) 2 GM/50 ML BAG IV ONE ×2 (14:22→21:02)
[2017-10-28 14:24] VITALS: BMI 33.7
[2017-10-28] MEDS ORDERED: CEFAZOLIN 2 G in NS 100 ML IV SCH (15:00)
[2017-10-28] MEDS ORDERED: ONDANSETRON 4 MG/2 ML INJECTION IVP PRN (18:28)
[2017-10-28] MEDS ORDERED: DiphenhydrAMINE 50 MG/ML INJECTION IVP PRN (18:28)
[2017-10-28] MEDS ORDERED: ROPIVACAINE 1% 10MG/ML INJ 200 MG, SUFentanil 50 MCG in NS 100 ML EPI PRN (18:28)
[2017-10-28] MEDS ORDERED: NALOXONE 0.4 MG/ML INJECTION IVP PRN (18:28)
--- NOTE | 2017-10-28 18:28 | Anesthesia Preoperative Report ---
Anesthesia Epidural/Spinal Rec - Date and Time Date: 10/28/17 Preoperative Diagnosis: Labor Procedure: Labor Epidural Plan: Epidural - Vital Signs /Para: P:0 - Medictaions & Allergies Inpatient Medications: Current Medications Acetaminophen (Tylenol) 500 - 1,000 mg PO Q4H PRN PRN Reason: Pain Al Hydroxide/Mg Hydroxide (Maalox Plus) 30 ml PO Q3H PRN PRN Reason: Indigestion Calcium Carbonate (Tums) 500 - 1,000 mg PO Q2H PRN PRN Reason: Indigestion Last Admin: 10/28/17 16:09 Dose: 1,000 mg Carboprost Tromethamine (Hemabate) 250 mcg IM O PRN PRN Reason: .Downtime Lactated Ringer's (Lactated Ringers) 1,000 mls @ 999 mls/hr IV .Q1H1M PRN Last Admin: 10/28/17 18:24 Dose: 999 mls/hr Dextrose/Lactated Ringer's (Dextrose 5%-Lactated Ringers) 1,000 mls @ 125 mls/ hr IV .Q8H PRN PRN Reason: Labor Last Admin: 10/28/17 14:01 Dose: 125 mls/hr Oxytocin (Pitocin Drip) 30 unit in 500 mls @ 2 mls/hr IV .Q24H PRN; Protocol PRN Reason: Induction/Augmentation Last Admin: 10/28/17 06:07 Dose: 2 mls/hr Lidocaine HCl (Xylocaine-Mpf 1% Vial) 0.2 mg ID O PRN PRN Reason: IV Start Methylergonovine Maleate (Methergine) 0.2 mg IM O PRN Misoprostol (Cytotec) 800 mcg AR ONCE PRN Sodium Chloride (Iv Flush) 10 - 80 ml IV PRN PRN PRN Reason: Flushing Allergies/Adverse Reactions: Allergies Allergy/AdvReac Type Severity Reaction Status Date / Time No Known Allergies Allergy Verified 10/10/17 14:19 - Home Medications Home Medications: Home Medications Medication Instructions Recorded Confirmed Type Acetaminophen [Tylenol] 500 mg PO PRN 10/10/17 10/28/17 History Ferrous Sulfate [Iron] 325 mg PO DAILY 10/10/17 10/28/17 History Levothyroxine Tab 200 mcg PO DAILY 10/10/17 10/28/17 History Levothyroxine Tab [Synthroid] 1 tab PO ACB 10/10/17 10/28/17 History Levothyroxine Tab [Synthroid] 88 mcg PO ACB 10/10/17 10/28/17 History Vit Calc,Iron,Folic 1 each PO DAILY 10/10/17 10/28/17 History [ Vitamins] - Medical History Renal/Endocrine: Reports: Thyroid Disease (takes synthroid) Other History: Reports: Now - Surgical History Endocrine Surgery/Treatments: Reports: Thyroidectomy (2012) Anesthesia Reactions: Nausea and Vomiting Hx Family Anesthesia Reaction: No History of Motion Sickness: No - Social History Smoking Status: Never smoker Second Hand Exposure: No Substance Use Type: does not use Alcohol Intake Frequency: does not drink Hx Chewing Tobacco Use: No - Pertinent Findings Lab Data: CBC and BMP 10/28/17 05:57 - Physical Exam Respiratory Exam: lungs clear Cardiovascular Exam: regular rate and rhythm - Airway Assessment Mallampati Score: II TMD: 3 Fingerbreadths Neck Extension: good Overall Assessment: may be difficult intubation - ASA ASA Score: 2 - Discussion Discussion: Discussed risks/options/alternatives of anesthesia and questions answered. Patient consents. Nursing pain assessment noted. Anesthesia Discussion: spouse Attestation Statement: Prior to the delivery of any anesthetic medication, I examined the patient, developed the plan, obtained the patient's consent and discussed the risk and benefits of the procedure with the patient/guardian.
[2017-10-29] MEDS ORDERED: HYDROCORTISONE 2.5% CREAM 30gm RECTALLY PRN (02:46)
[2017-10-29] MEDS ORDERED: CALCIUM CARBONATE Chewable 500mg TABLET PO PRN (02:46)
[2017-10-29] MEDS ORDERED: MAG-AL + SIM ORAL LIQUID 30ml PO PRN (02:46)
[2017-10-29] MEDS ORDERED: ACETAMINOPHEN 500 MG TABLET PO PRN (02:46)
[2017-10-29] MEDS ORDERED: DiphenhydrAMINE 25 MG CAPSULE PO PRN (02:46)
[2017-10-29] MEDS: IBUPROFEN 800 MG TABLET PO SCH ×3 (03:51→21:50)
[2017-10-29] MEDS: HYDROCODONE/APAP 5mg/325mg TABLET PO PRN ×4 (08:25→21:50)
[2017-10-29] MEDS ORDERED: DOCUSATE CALCIUM 240 MG CAPSULE PO SCH (09:00)
[2017-10-29] MEDS ORDERED: PRENATAL VITAMIN TABLET PO SCH (09:00)
--- NOTE | 2017-10-29 11:59 | OB/GYN Progress Note ---
OB-PP Progress Note - General PPD1 Maternal Group B Strep: Negative Maternal Rh: positive Maternal Rubella Status: Immune - Subjective Date: 10/29/17 Lochia: Minimal Pain: controlled Voiding: voiding Nausea or Vomiting Present: No - Objective Vital Signs: Last Vital Signs Temp 98.6 F 10/29/17 03:15 Pulse 68 10/29/17 03:15 Resp 16 10/29/17 03:15 BP 100/50 10/29/17 03:15 Pulse Ox 100 10/28/17 21:10 General: alert and oriented Abdomen: fundus firm, non-tender Extremities: non-tender Side: bilateral Site: ankle Edema Degree: 1+ - Assessment Assessment: SP, - Plan Plan: routine care Expected date of discharge: 10/30/17
[2017-10-30 01:34] VITALS: O2SAT 99
[2017-10-30] MEDS: IBUPROFEN 800 MG TABLET PO SCH (06:20)
[2017-10-30] MEDS: LEVOTHYROXINE 200 MCG TABLET PO SCH ×2 (06:20→06:42)
[2017-10-30] MEDS: HYDROCODONE/APAP 5mg/325mg TABLET PO PRN (06:20)
[2017-10-30 06:31] VITALS: BP 112/65; PULSE 85; RESP 16; TEMP 98.4
--- NOTE | 2017-10-30 07:52 | Labor and Delivery Note ---
This is a delivery note for a patient of Dr. Santos. DATE: 10/28/2017 Ms. Delarosa presented with premature rupture of membranes at about 3 o'clock this morning. She progressed slowly in labor initially. At the 12 hour after ruptured membranes aidee, antibiotics were given. Upon arrival here we started Pitocin induction. She then began to progress to the complete and +2 presentation. She began to push with excellent effort, pushing for a short time. She then delivered the head in the OA position. Baby was bulb suctioned on the perineum. There was no evidence of nuchal cord. With a further push baby was delivered in total. Baby was then further bulb suctioned and placed on mother's abdomen. After about 2-1/2 minutes the cord was soft and flat. It was then doubly clamped. It was cut by the baby's father (Bruno). This was a liveborn female with Apgars of 8/9/9. She weighed 8 pounds, 6.6 ounces. After a few moments the placenta delivered spontaneously intact with a normal configuration. I could see that the membranes had normal configuration, however, it did appear that there was an amniotic band. The placenta was sent to the pathologist for inspection because I could see that there were still membranes coming from the cervix. I performed a manual exam of the uterus, obtaining a small further amount of membranes and the uterine cavity felt clear at this point. The patient then had a second-degree midline laceration that extended up the right sulcus and up the left labium. The area was repaired in the usual fashion with 2-0 Vicryl. Total blood loss was approximately 400 cc. At the time of this dictation mother and baby are doing well. [facility]ITAL[facility]
--- NOTE | 2017-10-30 08:20 | OB/GYN Progress Note ---
OB-PP Progress Note - General PPD2 Maternal Group B Strep: Negative Maternal Rh: positive Maternal Rubella Status: Immune - Subjective Date: 10/30/17 Lochia: Moderate Pain: controlled Voiding: voiding Nausea or Vomiting Present: No - Objective Vital Signs: Last Vital Signs Temp 98.4 F 10/30/17 06:00 Pulse 85 10/30/17 06:00 Resp 16 10/30/17 06:00 BP 112/65 10/30/17 06:00 Pulse Ox 99 10/30/17 06:00 General: alert and oriented Abdomen: fundus firm Extremities: non-tender - Assessment Assessment: - Plan Plan: routine care, discharge home
--- NOTE | 2017-10-30 11:01 | Anesthesia Postoperative Note ---
- Date and Time Date: 10/30/17 Time: 11:00 - Status Patient Participated in Evaluation: Patient Participated in Person Vital Signs: Temperature 98.4 F 10/30/17 06:00 Pulse Rate 85 10/30/17 06:00 Respiratory Rate 16 10/30/17 06:00 Blood Pressure 112/65 10/30/17 06:00 Pulse Oximetry 99 10/30/17 06:00 Respiratory Function: Airway Patent Cardiovascular Function: Regular Pulse Mental Status: Alert and Oriented Pain Intensity: 0 Hydration: Taking PO Fluids Complications During Recover: None Apparent - Follow-Up Instructions Instructions: Per Surgeon
== END 2017-10-30 11:20 | disposition home or self-care (01) | DRG 775 ==
LOC: OBOBS 04:58 → MC 05:00
PROVIDERS: ADMIT Obstetrics & Gynecology; ATTEND Obstetrics & Gynecology